=== PATIENT | female | born 1970 | race Caucasian/White ===

== ENCOUNTER → 2017-11-04 16:56 | Outpatient (CLI) | payer BC, SELFPAY | PROVIDERS: Visit Provider Obstetrics & Gynecology | DX: R30.0 Dysuria (principal) | CPT/HCPCS: 87086; 87088; 87186 ==

== ENCOUNTER → 2018-01-10 12:33 | Outpatient (CLI) | payer BC, MEDICAID, SELFPAY ==
--- NOTE | 2018-01-10 12:37 | BI_ITS ---
MAMMOGRAPHY - BILATERAL SCREENING REASON FOR EXAM: Female, 47 years old. Routine annual screening examination. PERTINENT HISTORY: Non-contributory. TECHNIQUE: Digital bilateral breast kristine (3D mammographic acquisition) in the CC and MLO projections. 2-D mediolateral oblique (MLO) and craniocaudad (CC) views of both breasts were obtained. CAD: Full Field Digital Mammography with Computer Added Detection was performed. COMPARISON: None. Baseline examination. FINDINGS: Breast Composition: The breasts are heterogeneously dense, which may obscure small masses. There are no dominant masses or suspicious calcifications. No other significant abnormalities are identified. BI/SCREENING MAMM (CAD), BILAT IMPRESSION: Negative screening mammogram. Yearly followup mammogram recommended. (A) ASSESSMENT CATEGORY: BIRADS Category 1: Negative. A letter regarding these results will be sent to the patient by the facility within 30 days. Approximately 10% of breast cancers are not detected by mammography. A normal mammogram should not delay biopsy of a clinically suspicious abnormality. [id number] Electronically Signed: Zia Dial MD at 13:52 EDT Tel [phone], Service support ,
== END ==
PROVIDERS: Visit Provider Obstetrics & Gynecology
DX: Z12.31 Encounter for screening mammogram for malignant neoplasm of breast (principal)
CPT/HCPCS: 77063; 77067

== ENCOUNTER 2018-05-12 09:00 | Outpatient (RCR) | payer BC, MEDICAID, SELFPAY ==
--- NOTE | 2018-04-04 10:24 | HP.PTEVAL_ITS ---
Patient's Visit Information YEVGENIY LADD is a 47 year old F referred to Physical Therapy by LEO TONEY with a diagnosis of cervical spondylosis w/o myelopathy. Date of Evaluation: 04/04/18 Physical Therapist: Christine Mitchell - Visit Plan Frequency: 2x /Week Duration: 4 Weeks Plan: 2X/ week for 4 weeks for c-spine AROM, MT to B c-spine paraspinals, manual distracton, if ok with manual distraction may proceed to mechanical traction, postural exercises with modalitites as needed - Subjective Subjective: Pt reports neck issues for about 10 year and it comes and goes. About 10 years ago she was with her daughter at on one of the kiddie rides and that seemed to be what started it. They did an x-ray. She did an MRI 7 years ago. Normally she gets injections in her neck but insurance wants PT first. Neck pain is in the middle of neck and into shoulders on the R side and has not gone into R arms as of yet. It does go into the fingers if she drives or depending on what she is doing. If she gets the injections and stays ahead of it then it does not go into fingers. She has noticed min weakness in her arms. She can not sleep because of the neck pain and hard to get comfortable. Injections generally lasted painwise about 2 months. SHe has had PT for her neck before with stretching the neck (traction) annd US and those have been the most beneficial. She has exercise bands that she is doing at home. 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 - Pain neck pain Pain Intensity (Out of 10): 7 - Objective Pt is R handed: [employer] STRENGTH: R 53# and L 65#. C-spine AROM: 75% Rot B, 75% flexion, Ext 25%. UE MMT: B flexion 4-/5, B hip abd 4-/5, ER B 4-/5, IR B 4/ 5. Palpation: tender occiput region, B c-spine paraspinals. Pt felt better with c-spine distraction (improved rotation AROM after). Posture: sits with rounded shoulders and fw shoulders and slight fw head - Goals Goal 1:: I HEP Goal Time Frame: 4-6 Weeks Goal 2:: Be able to sleep through the night without waking up in pain (at least 6 hours of sleep) Goal Time Frame: 4-6 Weeks Goal 3:: Increase c-spine AROM to 100% Rot B and flexion and 75% ext AROM Goal Time Frame: 4-6 Weeks - Rehabilitation Potential Rehabilitation Potential: Good - Anticipated Interventions Patient/Client Instruction: Educate patient on: Plan of Care For the Purpose of:: To decrease pain, To increase ROM, To improve nutrient delivery to tissue, To improve muscle performance and motor function, To improve ability to perform ADL's, To increase tolerance to activity/condition/ position, To improve ability of physical actions for home/community/work/leisure , To improve health of tissue, To decrease soft tissue restriction, To increase flexibility/ROM Therapeutic Exercise to Include: Strength training, Postural training, Flexibilty training, Passive ROM, Active ROM, Scapular Strength/Stabilization For the Purpose of:: To decrease pain, To increase ROM, To improve nutrient delivery to tissue, To improve muscle performance and motor function, To improve ability to perform ADL's, To increase tolerance to activity/condition/ position, To improve health of tissue, To decrease soft tissue restriction, To increase flexibility/ROM Manual Therapy Techniques to Include: Passive ROM, Functional dry needling, Soft tissue mobilization For the Purpose of:: To decrease pain, To increase ROM, To improve nutrient delivery to tissue, To improve muscle performance and motor function, To improve ability of physical actions for home/community/work/leisure, To improve health of tissue, To decrease soft tissue restriction, To increase flexibility/ ROM IF ES: Yes Cryotherapy (ice pack, ice massage): Yes Ultrasound (thermal/non thermal): Yes For the Purpose of:: To decrease pain, To increase ROM, To improve nutrient delivery to tissue, To improve muscle performance and motor function, To improve ability to perform ADL's, To improve health of tissue, To decrease soft tissue restriction, To increase flexibility/ROM Thank you for the opportunity to evaluate your patient. For Medicare and Medicare HMO plans, please review the plan of care and approve it. It will need to be FAXED BACK to us at [phone] for Medicare purposes. Please let me know if there are questions or concerns regarding this plan of care. Physician Signature: Date:
--- NOTE | 2018-05-12 09:39 | HP.PTDCSUM_ITS ---
HP - PT D/C Summary It has been my pleasure to treat YEVGENIY LADD under orders from LEO TONEY , for the diagnosis of cervical spondylosis w/o myelopathy for a total of 9 visit(s). Discharge Date: 05/12/18 Please see the following information for a summary of their discharge status. - Subjective Subjective: Pt reports that she is still having CARRINGTON and still sore. US and traction helps when here but wears off quickly. SHe is having 3-4 CARRINGTON/ week. Pt goes back to [facility] soon for injections. Slight CARRINGTON today. Pt only sleeps about 3 hours a night. Driving is a huge issue because neck pain ( about 2-3 hours into work she notices pain in the shoulders and then goes up into the neck). - Pain neck pain Pain Intensity (Out of 10): 7 - Overall Improvement % Improvement: 30 - Objective Objective/Function: c-spine AROM: Ext 75%, flexion 100%, SB 75%, Rot R 100% and L 80%. Posture: is good and upright. - Goals Goal 1:: I HEP Goal Progress: Goal Met Goal 2:: Be able to sleep through the night without waking up in pain (at least 6 hours of sleep) Goal Progress: Not Progressing Goal 3:: Increase c-spine AROM to 100% Rot B and flexion and 75% ext AROM Goal Progress: Progressing - Plan Plan: DC PT to Physician referral as traction, MT, US and postural exercises only give temporary relief. - D/C Information Discharge Comments: DC PT back to physician If there are questions or concerns regarding this patient's physical therapy, please feel free to call me at [phone]. Thank you for the referral of this patient. Sincerely, Christine Mitchell
== END 2018-05-12 19:00 | disposition home or self-care (01) ==
LOC: PT 09:00
DX: M47.812 Spondylosis without myelopathy or radiculopathy, cervical region (principal)
CPT/HCPCS: 97012; 97035; 97140; 97161; 97530

== ENCOUNTER → 2018-06-28 11:59 | Outpatient (CLI) | payer BC, MEDICAID, SELFPAY ==
[2018-06-28 14:24] LABS: Erythrocyte Sedimentation Rate 6 mm/hr (0-20)
[2018-06-28 14:29] LABS: Absolute Lymphocyte Count 2.56 X10^3/ul (0.83-4.51); Absolute Neutrophil Count 5.9 X10^3/uL (2.0-7.7); Basophil# 0.03 X10^3/uL; Basophil% 0.3 % (0-1); Hematocrit 44.4 % (37-47); Hemoglobin 15.4 g/dl (12.0-15.0); Lymphocyte # 2.56 X10^3/ul (4.0); Lymphocyte % 28.6 % (19-41); Mean Corp Hgb Conc 34.7 g/gl (32-36); Mean Corpuscular Hgb 33.3 pg (27.0-32.0); Mean Corpuscular Volume 96.1 fL (81-99); Mean Platelet Vol. 10.9 fl (6.2-12.0); Monocyte# 0.42 X10^3/uL; Monocyte% 4.7 % (0-10); Neutrophil # 5.93 X10^3/uL (2.7-7.7); Neutrophil % 66.3 % (47-70); Platelet Count 229 K/mm3 (150-450); RBC Distribution Width CV 14.7 % (11.6-14.6); RBC Distribution Width SD 50.3 fl (35.1-43.9); Red Blood Count 4.62 M/mm3 (4.2-5.4)
[2018-06-28 14:30] LABS: Differential Indicated SCAN CRITERIA MET; POSITIVE COUNT NO; POSITIVE DIFFERENTIAL NO; POSITIVE MORPHOLOGY YES
[2018-06-28 14:36] LABS: ALB/GLOB Ratio 1.1 RATIO (0.9-2.4); AST(SGOT) 19 U/L (15-37); Alanine Aminotransfer ALT/SGPT 29 U/L (13-56); Albumin, Serum 3.7 g/dL (3.2-5.0); Alkaline Phosphatase 89 U/L (45-117); Anion Gap 8 (5-15); BUN 8 mg/dL (7-18); BUN/Creat Ratio 7.8 RATIO (10-20); Calcium,Total 8.6 mg/dL (8.5-10.1); Chloride 109 mmol/L (98-107); Creatinine, Serum 1.02 mg/dL (0.55-1.02); EST Glomerular Filtration Rate 62 mL/min (>60); Est Glom Filt Rate - Afr Amer 75 mL/min (>60); Globulin 3.3 g/dL (2.2-4.2); Glucose 74 mg/dL (74-106); Potassium 4.2 mmol/L (3.5-5.1); Sodium Level 142 mmol/L (136-145)
[2018-06-28 14:55] LABS: Reactive Lymphocyte 1+
== END ==
DX: R11.0 Nausea (principal)
CPT/HCPCS: 36415; 80053; 85025; 85652

== ENCOUNTER 2018-09-09 20:24 | Emergency (ER) | payer BC, MEDICAID, SELFPAY ==
[2018-09-09] VITALS (9 sets, daily range): BP systolic 115–156; BP diastolic 47–85; PULSE 76–102; RESP 14–18; TEMP 36.2; O2SAT 95–100; BMI 21.4
[2018-09-09] MEDS: oxyCODONE 5 MG Tablet PO ×3 (20:43→23:36)
--- NOTE | 2018-09-09 20:56 | RAD_ITS ---
STUDY: X-RAY - LEFT WRIST REASON FOR EXAM: Female, 48 years old. Fall on wrist while roller skating, bruising, swelling, fracture TECHNIQUE: 3 view(s) of the wrist were obtained. COMPARISON: None. FINDINGS: Transverse dominant fracture of the distal radius extends to the distal radial articulation. There is approximately 8 mm of displacement with moderate degree of volar apical attenuation. Nondisplaced fracture of the ulnar styloid also identified. Normal distal radioulnar articulation. Normal carpal bones. Normal carpal articulations. Normal carpometacarpal articulation of the thumb. Normal second through fifth carpometacarpal articulations. Normal visualized metacarpal bones. There is soft tissue swelling. RAD/Wrist min 3 Views IMPRESSION: Distal radial fracture with angulation and displacement. Ulnar styloid fracture. Electronically Signed: Fortino Leon MD at 22:58 EST , Service support ,
[2018-09-09] MEDS: Propofol 200 MG/20 ML Vial IV BOLUS (22:40)
--- NOTE | 2018-09-09 22:42 | RAD_ITS ---
STUDY: X-RAY - LEFT WRIST REASON FOR EXAM: Female, 48 years old. Status post reduction of distal radius fracture. TECHNIQUE: 3 view(s) of the wrist were obtained. COMPARISON: Earlier today FINDINGS: Distal radius fracture has been reduced with gross radiographic alignment. Ulnar styloid fracture is similar. Bony detail obscured by overlying splint material. Normal radiocarpal articulation. Normal distal radioulnar articulation. Normal carpal bones. Normal carpal articulations. Normal carpometacarpal articulation of the thumb. Normal second through fifth carpometacarpal articulations. Normal visualized metacarpal bones. Soft tissue swelling persists. RAD/Wrist 2 Views IMPRESSION: Radiographic alignment of distal radial fracture following reduction. Nondisplaced ulnar styloid fracture. Electronically Signed: Fortino Leon MD at 23:01 EST , Service support ,
--- NOTE | 2018-09-09 22:54 | ED.DCSUM_ITS ---
- ER Visit Summary Date of Service: 09/09/18 Chief Complaint: Left wrist injury History of Present Illness: The patient is a 48 F presents to the emergency department injury to her left wrist. Patient was roller skating. She ended up losing her balance and fell. She caught herself on an outstretched left wrist. She is right-hand dominant. She did not strike her head. She denies other injury. 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 She is otherwise healthy. She takes no anticoagulants. Physical Examination: Exam relatively unremarkable. Patient does have obvious deformity of the left wrist. Her pulses are normal. Anterior interosseous, posterior interosseous, and ulnar nerve are preserved. Pulses are normal. There is no skin breakdown or tenting. Test Results: [] Emergency Department Course and Treatment: Patient was given oral analgesics. X-rays were obtained. It does show displaced distal radius fracture with dorsal angulation. I did review options with the patient. She did request sedation. The patient was consented for conscious sedation. She was given a total of 100 mg of propofol in small aliquots. When she was sedated, the wrist was reduced. She was placed in a plaster splint. Repeat x-rays do show marked improvement of alignment. The patient will be kept on analgesics. She requested a follow- up with Dr. Fitzgerald and will be given this outpatient follow-up. She will be discharged home. Treatment Plan: [] Disposition: Discharge Impression: 1. Left distal radius fracture with reduction 2. Conscious sedation 3. Splint by ED physician This note was generated with [employer] dictation software. It may contain incorrect words, spelling, and punctuation that were not noted in review of the chart prior to signing ED Disposition - Plan for ED Patient: Chief Complaint: Upper Extremity Injury Instructions: ED Fx Colles Wrist Redu Requ Prescriptions: Oxycodone HCl/Acetaminophen [Percocet 5/325] 1 tab PO Q6H PRN PRN 3 Days #12 tab PRN Reason: Pain Referrals: Cristina Gomez DO [STAFF PHYSICIAN] -
== END 2018-09-09 23:46 | disposition home or self-care (01) ==
PROVIDERS: Emergency Provider Emergency Medicine
DX: S52.502A Unspecified fracture of the lower end of left radius, initial encounter for closed fracture (principal); S52.612A Displaced fracture of left ulna styloid process, initial encounter for closed fracture; W18.30XA Fall on same level, unspecified, initial encounter; Y93.51 Activity, roller skating (inline) and skateboarding; Y92.9 Unspecified place or not applicable
CPT/HCPCS: 25605; 29125; 73100; 73110; 96374; 99285; J7030; A4216

== ENCOUNTER → 2018-09-14 08:39 | Outpatient (CLI) | payer BC, MEDICAID, SELFPAY ==
[2018-09-14 08:14] VITALS: BMI 21.4
--- NOTE | 2018-09-14 08:41 | RAD_ITS ---
STUDY: X-RAY - LEFT WRIST REASON FOR EXAM: Fracture. TECHNIQUE: 3 view(s) of the wrist were obtained. COMPARISON: Post reduction radiographs 09/09/2018. FINDINGS: There is no interval change of the distal radial and ulnar fractures with satisfactory alignment and position. Normal radiocarpal articulation. Normal distal radioulnar articulation. Normal carpal bones. Normal carpal articulations. Normal carpometacarpal articulation of the thumb. Normal second through fifth carpometacarpal articulations. Normal visualized metacarpal bones. There is an overlying cast. RAD/Wrist min 3 Views IMPRESSION: No interval change of distal radial and ulnar fractures. Electronically Signed: Gopi Cohn MD at 11:33 EST Tel , Service support ,
--- OUTSIDE RECORDS SUMMARY | 2018-10-31 01:50 | XMS RPT_ITS ---
:1970 Author Organization OHIP Support Name Relationship Address Phone HETAL, DAVION Unavailable [address] + [place] [address] UE Unavailable Unavailable Unavailable HETAL, DAVION Unavailable [address] + [place] [address] UE Unavailable Unavailable Unavailable HETAL, DAVION Unavailable [address] + [place] [address] UE Unavailable Unavailable Unavailable HETAL, DAVION Unavailable [address] + [place] [address] UE Unavailable Unavailable Unavailable HETAL, DAVION Unavailable [address] + [place] [address] UE Unavailable Unavailable Unavailable HETAL, DAVION Unavailable [address] + [place] [address] UE Unavailable Unavailable Unavailable HETAL, DAVION Unavailable [address] + [place] [address] UE Unavailable Unavailable Unavailable HETAL, DAVION Unavailable [address] + [place] [address] UE Unavailable Unavailable Unavailable HETAL, DAVION Unavailable [address] + [place] [address] UE Unavailable Unavailable Unavailable HETAL, DAVION Unavailable [address] + [place] [address] UE Unavailable Unavailable Unavailable HETAL, DAVION Unavailable [address] + [place] [address] UE Unavailable Unavailable Unavailable HETAL, DAVION Unavailable [address] + [place] [address] RICKI LADD Unavailable [address] + [place] [address] UE Unavailable Unavailable Unavailable DAVION FONG Unavailable [address] + [place] [address] RICKI LADD Unavailable [address] + [place] [address] UE Unavailable Unavailable Unavailable Care Team Providers Name Role Phone Cristina Gomez Attending Unavailable Primay Care Physicia, No Referring Unavailable Cocoorelscar, Cristina Attending Unavailable Chicorelscar, Cristina Referring Unavailable Primay Care Physicia, No Primary Care Unavailable Chicorelscar, Cristina Attending Unavailable Primay Care Physicia, No Referring Unavailable Chicorelli, Cristina Attending Unavailable Chicorelli, Cristina Referring Unavailable Primay Care Physicia, No Primary Care Unavailable Patricia, Cristina Attending Unavailable Chicorelscar, Cristina Referring Unavailable Primay Care Physicia, No Primary Care Unavailable Regis Naranjo Attending Unavailable Primay Care Physicia, No Referring Unavailable Simona Cantor Attending Unavailable Primay Care Physicia, No Primary Care Unavailable Praminder Barney Attending Unavailable Primay Care Physicia, No Primary Care Unavailable WALLACE HANCOCK Attending Unavailable WALLACE HANCOCK Referring Unavailable Primay Care Physicia, No Primary Care Unavailable WALLACE HANCOCK Consulting Unavailable WALLACE HANCOCK Attending Unavailable WALLACE HANCOCK Referring Unavailable Primay Care Physicia, No Primary Care Unavailable Primay Care Physicia, No Primary Care Unavailable Jalil Villafana Attending Unavailable Regis Naranjo Attending Unavailable Regis Naranjo Referring Unavailable Primay Care Physicia, No Primary Care Unavailable Patricia, Cristina Attending Unavailable PROBLEMS PROBLEMS DATE TYPE CONDITION / CODE ATTENDING STATUS SOURCE 10/06/2018 Unknown S52.502A - Regis Naranjo Active [place] [facility] fracture of the Hospital lower end of left Repository radius, initial encounter for closed fracture / S52.502A(ICD-10) 09/21/2018 Unknown S62.102A - Patricia, Active [place] [facility] carpal bone, left Repository wrist, initial encounter for closed fracture / S62.102A(ICD-10) 09/09/2018 Unknown S62.109A - Jalil Villafana Active [place] Fracture of Community unspecified Hospital carpal bone, Repository unspecified wrist, initial encounter for closed fracture / S62.109A(ICD-10) 05/16/2018 Unknown M47.812 - WALLACE HANCOCK Active [place] 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, cervical region / M47.812(ICD-10) 01/10/2018 Unknown Z12.31 - Parminder Barney Active [facility] mamm[facility] for Repository malignant neoplasm of breast / Z12.31(ICD-10) 11/10/2017 Unknown R30.0 - Dysuria / Uw-Sim Active [place] R30.0(ICD-10) [facility] Repository PROCEDURES PROCEDURES No Procedure Records FoundRESULTS RESULTS ORTHOPEDIC VISIT Observed: 10/06/2018 Status: F Source: [place] REPORT 1:29 PM [facility] REPOSITORY [facility] Orthopaedics AND Sports Medicine [address] [place] [address] OFFICE VISIT Date of Service: 10/06/18 MR#: [id number] Acct: [id number] Name: RACHEL LADD Rep #: [id number] : 1970 Provider: PEG Naranjo Age/Sex: 48/F [place] [facility] [place]: Signed Intake Vital Signs10/06/18 Body Mass Index (BMI) 21.2 Intake Visit Reasons: LEFT WRIST Is patient in pain?: Yes Pain scale (1-10): 2 Allergies latex Allergy (Verified 10/06/18 08:46) Hives codeine Adverse Reaction (Verified 10/06/18 08:46) Vomiting hydrocodone [From Vicodin] Adverse Reaction (Verified 10/06/18 08:46) Vomiting Medications Dimenhydrinate [Motion Sickness] 50 mg PO QHS 12/27/16 [History Confirmed 09/22/18] Sumatriptan Succinate [Imitrex] 100 mg PO PRN PRN 12/27/16 [History Confirmed 09/22/18] Estradiol 1 mg PO DAILY 08/18/17 [History Confirmed 09/22/18] Naproxen [Naprosyn] 500 mg PO BID PRN 12/21/18 [History Confirmed 09/22/18] Omeprazole Magnesium [Prilosec Otc] 20 mg PO PRN PRN 09/22/18 [History Confirmed 09/22/18] Oxycodone HCl/Acetaminophen [Percocet 2.5-325 mg Tablet] 1 tab PO TID PRN PRN 09/22/18 [History Confirmed 09/22/18] PFSH Social History Smoking Status: Current every day smoker HPI LEFT WRIST: Details: RACHEL LADD is a 48 year old F here today for s/p left wrist ORIF dos 09/22/18. She states that she has soreness into wrist. Patient has been wearing her splint at all times. She is able to move her fingers with no pain. Denies numbness, tingling or other associated symptoms. ROS Const Reports system reviewed and no additional complaints, except as docu Eyes Reports system reviewed and no additional complaints, except as docu ENT Reports system reviewed and no additional complaints, except as docu Card Reports system reviewed and no additional complaints, except as docu Resp Reports system reviewed and no additional complaints, except as docu GI Reports system reviewed and no additional complaints, except as docu Reports system reviewed and no additional complaints, except as docu Musc Reports joint pain Skin/Breast Reports system reviewed and no additional complaints, except as docu Neuro Yes system reviewed and no additional complaints, except as docu Psych Reports system reviewed and no additional complaints, except as docu Endo Reports system reviewed and no additional complaints, except as docu Ortho Exam Right Wrist/Hand Skin/Wound: Yes Swelling (Minor volar swelling), No Ecchymosis Left Wrist/Hand Skin/Wound: Yes Swelling (Minor volar swelling), No Ecchymosis Contralateral Normal: Yes Left Wrist: Yes TTP Fracture site (Some minor tenderness); no ROM-Flexion 0-80, no ROM-Extension 0-60, no ROM-Pronation 0-80, no ROM-Supination 0-90 or no Durken's Test Sensation: Radial: I, Ulnar: I, Median: I WRIST: Today in the office patients splint was removed. Her incision site is healing well without any surrounding erythema, inflammation, or discharge. She has a minor swelling of the volar wrist. She has some minor tenderness around the incision/fracture site as well. Patient has normal movement and sensation of the hand and fingers. No evidence of carpal tunnel. Assessment AND Plan Problems 1. Orthopedic aftercare Z47.89 2. Encounter for aftercare for healing traumatic fracture of left humerus S42.302D Plan Obtained Xrays of patient's left wrist. Personally reviewed Xrays. There is an evident distal radius fracture with new overlying plate and screws. She has near anatomic alignment as this time. There is no dislocation, or lucency noted. See chart for further details. This time patient is healing well 2 weeks postop ORIF of the left wrist due to distal radius fracture. She is some very minor swelling of the volar wrist without any erythema, inflammation, discharge or signs of infection. She is some minor tenderness on palpation as well. She has normal sensation movements of the fingers and hand. At this time we did go over her x-rays which show good alignment of the bones with the orthopedic hardware in place. No evidence of callus formation at this time. We did discuss that her smoking is going to inhibit/prolong her healing and some of that we need to make sure we monitor. At this point we are going to give her a prescription for occupational therapy so she can begin range of motion of the wrist. She can continue to ice and take anti-inflammatories as needed for pain and inflammation. She is to monitor and notify of any erythema, increased swelling, increasing pain, or discharge from the incision sites. I allow the Steri- Strips to fall on her own. She is able to get this wet without any soaking at this time. We will recheck in 1 month. Orders Orders: Plan Detail Follow Up 4 Weeks Coding Level of Care Code Global Post Op Diagnoses Orthopedic aftercare Z47.89 Encounter for aftercare for healing traumatic fracture of left humerus S42.302D Laterality: left 10/06/18 1329 <Electronically signed by Regis RUVALCABA> Date Regis RUVALCABA Cosigner Signature: Date (if applicable) CC: WRIST MIN 3 VIEWS Observed: 10/06/2018 Status: F Source: [place] 8:51 AM [facility] REPOSITORY [facility] Imaging Services [address] [place] [address] Wrist min 3 Views MR#: [id number] Acct: [id number] Name: RACHEL LADD Rep #: [id number] : 1970 F 48 From: Fortino Leon MD PCP: Care Physician, No Primary Status: REG CLI Study: Wrist min 3 Views Date of Exam: 10/06/18 Exam# [id number] Ordering Dr: Regis Naranjo STUDY: X-RAY - LEFT WRIST REASON FOR EXAM: Female, 48 years old. Fracture follow- up following surgical fusion TECHNIQUE: 3 view(s) of the wrist were obtained. COMPARISON: 09/22/2018, 09/21/2019 FINDINGS: Fixation plate and screws spanning distal radial fracture similar in alignment as compared to 09/22/2018. Persistent fracture line is identified. No malalignment. Ulnar styloid fractures again demonstrated. Bony detail obscured by material. Normal radiocarpal articulation. Normal distal radioulnar articulation. Normal carpal bones. Normal carpal articulations. Normal carpometacarpal articulation of the thumb. Normal second through fifth carpometacarpal articulations. Normal visualized metacarpal bones. The soft tissue structures are unremarkable. RAD/Wrist min 3 Views IMPRESSION: 1. Stable alignment of distal radial fracture with orthopedic fusion hardware. 2. Nondisplaced ulnar styloid fracture. Electronically Signed: Fortino Leon MD at 7:16 EST , Service support , CC: No Primary Care Physician; PEG Naranjo Lode Miner: Signed OPERATIVE REPORT Observed: 09/29/2018 Status: F Source: [place] 12:20 PM [facility] REPOSITORY [facility] Medical Records Department [address] [place] [address] Operative Report 09/22/18 1143 MR#: [id number] Acct: [id number] Name: RACHEL LADD Rep #: [id number] : 1970 48 From: Cristina Gomez DO PCP: Care Physician, No Primary Status: [facility] [place] [facility] [place] of Operation Date of Procedure: 09/22/18 Pre-Operative Diagnosis: left displaced extraarticular distal radius fracture Post-Operative Diagnosis: same Surgery/Procedure Performed:: orif left distal radius with synthes DR plate bioprocess development engineer: Regis Naranjo Type of Anesthesia:: General Anesthesiologist: Apolinar Barney Estimated Blood Loss (mL): minimal Fluids Replaced: 1000ml lr Description of Procedure: Preoperative note Patient is a 48-year-old female who fell onto outstretched left hand. Stated deformity was reduced in the ER. She presented in the office we casted her she had to miss dorsal comminution and fell back into extension incision was made with the patient between a closed reduction and pinning versus a open reduction internal fixation. She would like to proceed with open reduction internal fixation to the fact that she would have not have to be in a cast for his lawn and or nor pull out pins in the office. Risks benefits and alternatives surgery discussed with patient. Risks including but not limited to blood loss, blood clot, infection, neurovascular injury, failure procedure, loss of life and loss of limb. Patient is aware and would like proceed with ORIF left wrist. Operative note Patient seen and examined preoperative holding area. Left hand was marked. Patient brought to the operating placed supine on the operating table. Signing, anesthesia, antibiotics were administered. Left arm was prepped and draped in usual sterile fashion with a tourniquet around her upper arm. Marked out our incision for our plate placement timeout was performed. Left leg the left arm was elevated exsanguinated and tourniquet was raised to pressure 250 torr. We then used a 15 blade to cut through the skin over top of the FCR and then dissected down tenotomies of the FCR FCR was released ulnarly the FCR fascia was also released we dissected down to the pronator quadratus pronator quadratus was elevated starting medially at the radial styloid and moving proximally using a brito elevator. We then were able to visualize the fracture site. We debrided the first fracture site with a dental pick. We then irrigated the incision with copious muscle sterile saline. Picked out our 2.4 variable angle will observe L at 2.4 to calm volar distal radius plate and placed it on to ensure that we had a good size which we did have. We then placed 2 cortical screws one in the radial styloid and the second 1 just ulnar to this after placing a K wire through the plate and ascertain the level that that we need to be from a proximal distal medial lateral. After he placed our 2 cortical screws we also made sure that we had almost the kickstand effect of the proximal shaft of the plate in order to further reduce the fracture site because she has quite extensive dorsal comminution again. We then placed variable angle of the 2.4 locking screws distally placed our shaft screws proximally were able to have neutralization of our volar tilt. We then filled and the remaining distal holes with locking screws through the more proximal row of the distal rows. We then irrigated the incision with copious muscle sterile saline. The pronator quadratus was tacked down to the periosteum. We closed the skin with 3-0 Vicryl and the skin with 4-0 running Monocryl. Tourniquet was inflated for total working time of 80 minutes. Patient tolerated procedure well no comp complications transferred to recovery room in stable condition. Postoperative note Patient has Percocet at home this Nonweightbearing left arm Follow-up in 2 weeks for initiation of occupational therapy removal of splint Call with increased pain numbness tingling or further issues arise This note was generated with [employer] dictation software. It may contain incorrect words, spelling, and punctuation that were not noted in checking the note before signing. 09/29/18 1220 <Electronically signed by Cristina Gomez DO> Date Cristina Gomez DO CC: No Primary Care Physician; Cristina Gomez DO Signed DISCHARGE INSTRUCTION Observed: 09/22/2018 Status: F Source: [place] 11:43 AM [facility] REPOSITORY [facility] Medical Records Department [address] [address] Instructions for Home/Discharge Instructions 09/22/18 1143 MR#: [id number] Acct: [id number] Name: RACHEL LADD Rep #: [id number] : 1970 48 From: Cristina Gomez DO PCP: Care Physician, No Primary Status: REG [facility] Discharge Diet: No Restrictions - leave dressing intact, if incision gets wet-change dressing, call with concerns, follow up in 2 weeks in clinic Discharge Activity: May Not Drive May shower in (days): 1 Ice area for (Minutes): 20 - Every hour while awake. Weight Bearing Status: Weight bearing as tolerated Keep extremity elevated above heart level: Operative Extremity Call your doctor if your incision/area has: Continuous Slow Oozing, Sudden Increased Bleeding, Increased Pain/ Swelling, Increased Redness, Foul Smelling Discharge Call your doctor if you observe: Fever of 101 or Higher, Coldness, Increased Pain, Numbness or Tingling, Change in Color, Calf discomfort Allergies/Adverse Reactions: Allergies latex Allergy (Verified 09/22/18 10:45) Hives codeine Adverse Reaction (Verified 09/22/18 10:45) Vomiting hydrocodone [From Vicodin] Adverse Reaction (Verified 09/22/18 10:45) Vomiting Medications to take at Discharge Dimenhydrinate [Motion Sickness] 50 mg PO QHS 12/27/16 Sumatriptan Succinate [Imitrex] 100 mg PO PRN PRN 12/27/16 Estradiol 1 mg PO DAILY 08/18/17 Naproxen [Naprosyn] 500 mg PO BID PRN 09/22/18 Omeprazole Magnesium [Prilosec Otc] 20 mg PO PRN PRN 09/22/18 Oxycodone HCl/Acetaminophen [Percocet 2.5-325 mg Tablet] 1 tablet PO TID PRN PRN 09/22/18 Primary Care Physician: Care Physician,No Primary [Primary Care Provider] - Test Results: Test results from this visit will be discussed in further detail at your follow-up appointment, if applicable. Please Follow Up With: Cristina Gomez DO - [phone] 09/22/18 1144 <Electronically signed by Cristina Gomez DO> Date Cristina Gomez DO CC: No Primary Care Physician Signed WRIST 2 VIEWS Observed: 09/22/2018 Status: F Source: [place] 2:03 AM [facility] REPOSITORY [facility] Imaging Services [address] [place] [address] Wrist 2 Views MR#: [id number] Acct: [id number] Name: RACHEL LADD Rep #: [id number] : 1970 F 48 From: Gopi Cohn MD PCP: Care Physician, No Primary Status: [facility] Study: Wrist 2 Views Date of Exam: 09/22/18 Exam# [id number] Ordering Dr: Cristina Gomez DO STUDY: X-RAY - LEFT WRIST REASON FOR EXAM: ORIF left wrist. TECHNIQUE: 4 view(s) of the wrist were obtained. COMPARISON: Radiographs 09/21/2018. FINDINGS: There is an orthopedic plate and screws transfixing a distal radial fracture in anatomical alignment and position. There is a nondisplaced fracture of the ulnar styloid process. Electronically Signed: Gopi Cohn MD at 15:45 EST Tel , Service support , RAD/Wrist 2 Views CC: No Primary Care Physician; Cristina Gomez DO Lode Miner: Signed ORTHOPEDIC VISIT Observed: 09/21/2018 Status: F Source: [place] REPORT 3:58 PM [facility] Orthopaedics AND Sports Medicine [address] [place] [address] [address] [place] [address] OFFICE VISIT Date of Service: 09/21/18 MR#: [id number] Acct: [id number] Name: RACHEL LADD Rep #: [id number] : 1970 Provider: Cristina Gomez DO Age/Sex: 48/F [place] [facility] [place] Status: Signed Intake Intake Visit Reasons: LEFT WRIST Is patient in pain?: No Allergies latex Allergy (Verified 09/21/18 15:32) Hives acetaminophen [From Vicodin] Adverse Reaction (Verified 09/21/18 15:32) Vomiting codeine Adverse Reaction (Verified 09/21/18 15:32) Vomiting hydrocodone [From Vicodin] Adverse Reaction (Verified 09/21/18 15:32) Vomiting Medications Dimenhydrinate [Motion Sickness] 50 mg PO QHS 12/27/16 [History Confirmed 09/09/18] Sumatriptan Succinate [Imitrex] 100 mg PO PRN PRN 12/27/16 [History Confirmed 09/09/18] Estradiol 1 mg PO DAILY 08/18/17 [History Confirmed 09/09/18] Naproxen [Naprosyn] 500 mg PO BID #20 tab 08/18/17 [Rx Confirmed 09/09/18] PFSH Social History Smoking Status: Current every day smoker HPI LEFT WRIST: Details: RACHEL LADD is a 48 year old F here today for a followup on her left wrist fracture. She states that she has no pain currently. Her shorrt arm cast is clean and dry but lose from swelling reduction. Denies numbness, tingling or other associated symptoms. ROS Const Reports system reviewed and no additional complaints, except as docu Eyes Reports system reviewed and no additional complaints, except as docu ENT Reports system reviewed and no additional complaints, except as docu Card Reports system reviewed and no additional complaints, except as docu Resp Reports system reviewed and no additional complaints, except as docu GI Reports system reviewed and no additional complaints, except as docu Reports system reviewed and no additional complaints, except as docu Skin/Breast Reports system reviewed and no additional complaints, except as docu Neuro Yes system reviewed and no additional complaints, except as docu Psych Reports system reviewed and no additional complaints, except as docu Endo Reports system reviewed and no additional complaints, except as docu Assessment AND Plan 1. Other closed fracture of distal end of left radius with routine healing, subsequent encounter S52.570U Plan X-rays were reviewed. There is change in fracture with displacement. Explained that she will need the fracture surgically fixed. Reviewed the pre-operative plans with the patient. Risks and benefits of the procedure were fully explained, including but not limited to infection, neurovascular injury, continued pain, arthritis, stiffness, need for further surgery, re-injury, DVT, PE, general risks of anesthesia, and loss of limb or life. The patient understands all the risks and does wish to proceed with written consent. Follow up in two wks for post op or sooner if pain, swelling, numbness or associated symptoms, or concerns develop. All questions answered. Patient in agreement of plan. Plan Detail Other Orders Orders: Coding Level of Care Code Off vis,est,level 3 Diagnoses Other closed fracture of distal end of left radius with routine healing, subsequent encounter S52.592D Encounter type: subsequent encounter Fracture healing: with routine healing Fracture morphology: other fracture Fracture type: closed 09/21/18 1558 <Electronically signed by Cristina Gomez DO> Date Cristina Gomez DO Cosigner Signature: Date (if applicable) CC: WRIST MIN 3 VIEWS Observed: 09/21/2018 Status: F Source: [place] 3:24 PM [facility] REPOSITORY [facility] Imaging Services [address] [place] [address] Wrist min 3 Views MR#: [id number] Acct: [id number] Name: RACHEL LADD Rep #: [id number] : 1970 F 48 From: Anselmo De Souza MD PCP: Care Physician, No Primary Status: REG CLI Study: Wrist min 3 Views Date of Exam: 09/21/18 Exam# [id number] Ordering Dr: Cristina Gomez DO STUDY: X-RAY - LEFT WRIST REASON FOR EXAM: Female, 48 years old. Follow-up of fracture. TECHNIQUE: 3 view(s) of the wrist through casting material were obtained. COMPARISON: September 14, 2018 FINDINGS: There is generalized osteopenia. Fractures of the distal radius and ulna are stable with follow-up or angulation at the fracture site and impaction at the fracture site. 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 Normal second through fifth carpometacarpal articulations. Normal visualized metacarpal bones. The soft tissue structures are unremarkable. RAD/Wrist min 3 Views IMPRESSION: Stable appearance of the wrist with no change and no complications. Electronically Signed: Anselmo De Souza MD at 14:19 EST , Service support , CC: No Primary Care Physician; Cristina Gomez DO Lode Miner: Signed ORTHOPEDIC VISIT Observed: 09/19/2018 Status: F Source: [place] REPORT 2:29 PM [facility] REPOSITORY [facility] Orthopaedics AND Sports Medicine [address] [place] [address] OFFICE VISIT Date of Service: 09/14/18 MR#: [id number] Acct: [id number] Name: RACHEL LADD Rep #: [id number] : 1970 Provider: Cristina Gomez DO Age/Sex: 48/F [place] [facility] [place] [place]: Signed Intake Vital Signs09/14/18 Body Mass Index (BMI) 21.4 Intake Visit Reasons: LEFT WRIST Is patient in pain?: Yes Pain scale (1-10): 7 Allergies latex Allergy (Verified 09/14/18 08:12) Hives acetaminophen [From Vicodin] Adverse Reaction (Verified 09/14/18 08:12) Vomiting codeine Adverse Reaction (Verified 09/14/18 08:12) Vomiting hydrocodone [From Vicodin] Adverse Reaction (Verified 09/14/18 08:12) Vomiting Medications Dimenhydrinate [Motion Sickness] 50 mg PO QHS 12/27/16 [History Confirmed 09/09/18] Sumatriptan Succinate [Imitrex] 100 mg PO PRN PRN 12/27/16 [History Confirmed 09/09/18] Estradiol 1 mg PO DAILY 08/18/17 [History Confirmed 09/09/18] Naproxen [Naprosyn] 500 mg PO BID #20 tab 08/18/17 [Rx Confirmed 09/09/18] PFSH Social History Smoking Status: Current every day smoker HPI LEFT WRIST: Details: RACHEL LADD is a 48 year old F here today for a left wrist fracture. She states that she fell while rollerskating on Tuesday night. She had a deformity and went to the ED where she had her wrist reduced. Patient notes that she was put into a splint which she has been wearing at all times. She has swelling and throbbing into her fingers. She has tingling into her 5th finger. Patient is taking percocet for pain. ROS Const Reports system reviewed and no additional complaints, except as docu Eyes Reports system reviewed and no additional complaints, except as docu ENT Reports system reviewed and no additional complaints, except as docu Card Reports system reviewed and no additional complaints, except as docu Resp Reports system reviewed and no additional complaints, except as docu GI Reports system reviewed and no additional complaints, except as docu Reports system reviewed and no additional complaints, except as docu Musc Reports joint pain, Reports joint swelling, Reports stiffness, Reports numbness Skin/Breast Reports system reviewed and no additional complaints, except as docu Neuro Yes system reviewed and no additional complaints, except as docu, Yes numbness Psych Reports system reviewed and no additional complaints, except as docu Endo Reports system reviewed and no additional complaints, except as docu Ortho Exam Left Wrist/Hand Motor: EPL: 5, FDP-2: 5, 1st Dorsal Interosseous: 5, APB: 5 Sensation: Radial: I, Ulnar: I, Median: I WRIST: ttp at fracture site Assessment AND Plan Plan Cast rules were reviewed with the patient. Patient should not stick any objects down the cast, should not get cast wet, and should not use cast as a weapon. extraarticular distal radius fracture cast repeat xrays 1 week in cast discussed treatment options for patient and all questions answered. Patient in agreement of plan. Follow up in1 week with repeat xrays or sooner if pain, swelling, numbness or associated symptoms, or concerns develop. Orders Orders: Coding Level of Care Code Off vis,new,level 3 09/19/18 1429 <Electronically signed by Cristina Gomez DO> Date Cristina Gomez DO Cosigner Signature: Date (if applicable) CC: WRIST MIN 3 VIEWS Observed: 09/14/2018 Status: F Source: [place] 8:41 AM [facility] REPOSITORY [facility] Imaging Services [address] [place] [address] Wrist min 3 Views MR#: [id number] Acct: [id number] Name: RACHEL LADD Rep #: [id number] : 1970 F 48 From: Gopi Cohn MD PCP: Care Physician, No Primary Status: REG CLI Study: Wrist min 3 Views Date of Exam: 09/14/18 Exam# [id number] Ordering Dr: Cristina Gomez DO STUDY: X-RAY - LEFT WRIST REASON FOR EXAM: Fracture. TECHNIQUE: 3 view(s) of the wrist were obtained. COMPARISON: Post reduction radiographs 09/09/2018. FINDINGS: There is no interval change of the distal radial and ulnar fractures with satisfactory alignment and position. Normal radiocarpal articulation. Normal distal radioulnar articulation. Normal carpal bones. Normal carpal articulations. Normal carpometacarpal articulation of the thumb. Normal second through fifth carpometacarpal articulations. Normal visualized metacarpal bones. There is an overlying cast. RAD/Wrist min 3 Views IMPRESSION: No interval change of distal radial and ulnar fractures. Electronically Signed: Gopi oChn MD at 11:33 EST Tel , Service support , CC: No Primary Care Physician; Cristina Gomez DO Lode Miner: Signed EMERGENCY DEPARTMENT Observed: 09/09/2018 Status: F Source: [place] SUMMARY 11:24 PM [facility] REPOSITORY [facility] Medical Records Department [address] [place] [address] Emergency Department Summary 09/09/18 2252 MR#: [id number] Acct: [id number] Name: RACHEL LADD Rep #: [id number] : 1970 48 From: Jalil Villafana MD PCP: Care Physician, Thu Primary Status: REG ER - ER Visit Summary Date of Service: 09/09/18 Chief Complaint: Left wrist injury History of Present Illness: The patient is a 48 F presents to the emergency department injury to her left wrist. Patient was roller skating. She ended up losing her balance and fell. She caught herself on an outstretched left wrist. She is right- hand dominant. She did not strike her head. She denies other injury. 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 She is otherwise healthy. She takes no anticoagulants. Physical Examination: Exam relatively unremarkable. Patient does have obvious deformity of the left wrist. Her pulses are normal. Anterior interosseous, posterior interosseous, and ulnar nerve are preserved. Pulses are normal. There is no skin breakdown or tenting. Test Results: [] Emergency Department Course and Treatment: Patient was given oral analgesics. X-rays were obtained. It does show displaced distal radius fracture with dorsal angulation. I did review options with the patient. She did request sedation. The patient was consented for conscious sedation. She was given a total of 100 mg of propofol in small aliquots. When she was sedated, the wrist was reduced. She was placed in a plaster splint. Repeat x-rays do show marked improvement of alignment. The patient will be kept on analgesics. She requested a follow-up with Dr. Fitzgerald and will be given this outpatient follow-up. She will be discharged home. Treatment Plan: [] Disposition: Discharge Impression: 1. Left distal radius fracture with reduction 2. Conscious sedation 3. Splint by ED physician This note was generated with [employer] dictation software. It may contain incorrect words, spelling, and punctuation that were not noted in review of the chart prior to signing ED Disposition - Plan for ED Patient: Chief Complaint: Upper Extremity Injury Instructions: ED Fx Colles Wrist Redu Requ Prescriptions: Oxycodone HCl/Acetaminophen [Percocet 5/325] 1 tab PO Q6H PRN PRN 3 Days #12 tab PRN Reason: Pain Referrals: Cristina Gomez DO [STAFF PHYSICIAN] - What to do if you have Problems For any increased pain, shortness of breath, bleeding, nausea or vomiting, chest pain, or any unexpected problems, contact your Primary Care Provider. Call [facility] ([phone]) or report to the closest Emergency Room. Call 911 if necessary. 09/09/18 2324 <Electronically signed by Jalil Villafana MD> Date Jalil Villafana MD Cosigner Signature (If Indicated): Date CC: No Primary Care Physician WRIST 2 VIEWS Observed: 09/09/2018 Status: F Source: [place] 10:40 PM [facility] REPOSITORY [facility] Imaging Services [address] [place] [address] Wrist 2 Views MR#: [id number] Acct: [id number] Name: RACHEL LADD Rep #: [id number] : 1970 F 48 From: Fortino Leon MD PCP: Care Physician, No Primary Status: DEP ER Study: Wrist 2 Views Date of Exam: 09/09/18 Exam# [id number] Ordering Dr: Jalil Villafana MD STUDY: X-RAY - LEFT WRIST REASON FOR EXAM: Female, 48 years old. Status post reduction of distal radius fracture. TECHNIQUE: 3 view(s) of the wrist were obtained. COMPARISON: Earlier today FINDINGS: Distal radius fracture has been reduced with gross radiographic alignment. Ulnar styloid fracture is similar. Bony detail obscured by overlying splint material. Normal radiocarpal articulation. Normal distal radioulnar articulation. Normal carpal bones. Normal carpal articulations. Normal carpometacarpal articulation of the thumb. Normal second through fifth carpometacarpal articulations. Normal visualized metacarpal bones. Soft tissue swelling persists. RAD/Wrist 2 Views IMPRESSION: Radiographic alignment of distal radial fracture following reduction. Nondisplaced ulnar styloid fracture. Electronically Signed: Fortino Leon MD at 23:01 EST , Service support , CC: No Primary Care Physician; Jalil Villafana MD Lode Miner: Signed WRIST MIN 3 VIEWS Observed: 09/09/2018 Status: F Source: [place] 8:32 PM [facility] REPOSITORY [facility] Imaging Services [address] [place] [address] Wrist min 3 Views MR#: [id number] Acct: [id number] Name: RACHEL LADD Rep #: [id number] : 1970 F 48 From: Frotino Leon MD PCP: Care Physician, No Primary Status: [facility] ER Study: Wrist min 3 Views Date of Exam: 09/09/18 Exam# [id number] Ordering Dr: Jalil Villafana MD STUDY: X-RAY - LEFT WRIST REASON FOR EXAM: Female, 48 years old. Fall on wrist while roller skating, bruising, swelling, fracture TECHNIQUE: 3 view(s) of the wrist were obtained. COMPARISON: None. FINDINGS: Transverse dominant fracture of the distal radius extends to the distal radial articulation. There is approximately 8 mm of displacement with moderate degree of volar apical attenuation. Nondisplaced fracture of the ulnar styloid also identified. Normal distal radioulnar articulation. Normal carpal bones. Normal carpal articulations. Normal carpometacarpal articulation of the thumb. Normal second through fifth carpometacarpal articulations. Normal visualized metacarpal bones. There is soft tissue swelling. RAD/Wrist min 3 Views IMPRESSION: Distal radial fracture with angulation and displacement. Ulnar styloid fracture. Electronically Signed: Fortino Leon MD at 22:58 EST , Service support , CC: No Primary Care Physician; Jalil Villafana MD Lode Miner: Signed ERYTHROCYTE SED RATE Collected: 06/28/2018 Status: F Source: [place] 12:07 PM [facility] REPOSITORY TYPE CODE TESTS RESULT OUT OF RANGE REFERENCE UNITS LAB L102.0000 0-20 mm/hr Normal SED RATE 6 Performed By: #### L101.9900, L100.0100 #### [facility] [place], [address] CBC W/DIFF, AUTOMATED Collected: 06/28/2018 Status: F Source: [place] 12:07 PM [facility] REPOSITORY TYPE CODE TESTS RESULT OUT OF RANGE REFERENCE UNITS LAB L100.1000 4.4-11.0 K/mm3 Normal WBC 9.0 LAB L100.1200 4.2-5.4 M/mm3 Normal RBC 4.62 LAB L100.1300 12.0-15.0 g/dl High HGB 15.4 LAB L100.1400 37-47 % Normal HCT 44.4 LAB L100.1500 81-99 fL Normal MCV 96.1 LAB L100.1600 27.0-32.0 pg High MCH 33.3 LAB L100.1700 32-36 g/gl Normal MCHC 34.7 LAB L100.1810 11.6-14.6 % High RDW CV 14.7 LAB L100.1820 35.1-43.9 fl High RDW SD 50.3 LAB L100.1900 150-450 K/mm3 Normal PLT 229 LAB L100.2000 6.2-12.0 fl Normal MPV 10.9 LAB L100.2100 47-70 % Normal NEUT% 66.3 LAB L100.2200 19-41 % Normal LY% 28.6 LAB L100.2300 0-10 % Normal MONO% 4.7 LAB L100.2400 0-5 % Normal EO% 0.0 LAB L100.2500 0-1 % Normal BASO% 0.3 LAB L100.2550 0.0-0.9 % Normal IM GRAN % 0.100 Result Comment: IG% - Immature Granulocytes (promyelocytes, myelocytes and metamyelocytes) > 1% indicates that a LEFT SHIFT is Present. LAB L100.2620 2.0-7.7 X10 3/uL Normal Absolute Neut 5.9 LAB L100.2720 0.83-4.51 X10 3/ul Normal Absolute Lymph 2.56 LAB L100.4700 Normal REACTIVE LYMPH 1+ Performed By: #### L101.9900, L100.0100 #### [facility] [address] [place], [address] COMPREHENSIVE METABOLIC Collected: 06/28/2018 Status: F Source: [facility] 12:07 PM [facility] REPOSITORY TYPE CODE TESTS RESULT OUT OF RANGE REFERENCE UNITS LAB L501.0100 74-106 mg/dL Normal GLU 74 Result Comment: Please note revised GLUCOSE reference range effective 2017. LAB L501.1000 7-18 mg/dL Normal BUN 8 LAB L501.1100 0.55-1.02 mg/dL Normal CREAT,SERUM 1.02 Result Comment: The validity of the calculated GFR AND GFRAA in patients over 70 years has not been determined. Clinical correlation is essential. LAB L501.1110 >60 mL/min Normal EST GFR 62 Result Comment: Non- GFR Calc LAB L501.1115 >60 mL/min Normal EST GFR - AA 75 Result Comment: GFR Calc LAB L501.1300 10-20 RATIO Low BUN/CRE 7.8 LAB L501.1500 6.4-8.2 g/dL Normal T PROT 7.0 LAB L501.1800 3.2-5.0 g/dL Normal ALB 3.7 LAB L501.1950 2.2-4.2 g/dL Normal GLOB 3.3 LAB L501.2000 0.9-2.4 RATIO Normal A/G 1.1 LAB L501.2200 8.5-10.1 mg/dL Normal CA 8.6 LAB L501.4100 15-37 U/L Normal AST 19 Result Comment: Slight Hemolysis, Result may be falsely increased. LAB L501.4305 45-117 U/L Normal ALK P 89 LAB L501.4405 13-56 U/L Normal ALT 29 LAB L501.4600 0.20-1.00 mg/dL Normal T BILI 0.30 LAB L501.5300 136-145 mmol/L Normal NA 142 LAB L501.5600 3.5-5.1 mmol/L Normal K 4.2 Result Comment: Slight Hemolysis, Result may be falsely increased. LAB L501.5900 98-107 mmol/L High CL 109 LAB L501.6100 21.0-32.0 mmol/L Normal CO2 25.0 LAB L501.6200 5-15 Normal 8 GAP Performed By: #### L500.4050 #### [facility] [address] [place], [address] PT D/C SUMMARY (1) Observed: 05/12/2018 Status: F Source: [place] 9:48 AM [facility] REPOSITORY [facility] Physical Therapy [facility] [address] [place] [address]. [address] [place], [place] [address] Fax REHABILITATION SERVICES DISCHARGE SUMMARY MR#: [id number] Acct: [id number] Name: RACHEL LADD Rep #: [id number] : 1970 48 From: Christine BATISTA Referring : Status: REG RCR Insurance: [facility] [employer] HP - PT D/C Summary It has been my pleasure to treat RACHEL LADD under orders from LEO TONEY, for the diagnosis of cervical spondylosis w/o myelopathy for a total of 9 visit(s). Discharge Date: 05/12/18 Please see the following information for a summary of their discharge status. - Subjective Subjective: Pt reports that she is still having CARRINGTON and still sore. US and traction helps when here but wears off quickly. SHe is having 3-4 CARRINGTON/ week. Pt goes back to [place] soon for injections. Slight CARRINGTON today. Pt only sleeps about 3 hours a night. Driving is a huge issue because neck pain ( about 2-3 hours into work she notices pain in the shoulders and then goes up into the neck). - Pain neck pain Pain Intensity (Out of 10): 7 - Overall Improvement % Improvement: 30 - Objective Objective/Function: c-spine AROM: Ext 75%, flexion 100%, SB 75%, Rot R 100% and L 80%. Posture: is good and upright. - Goals Goal 1:: I HEP Goal Progress: Goal Met Goal 2:: Be able to sleep through the night without waking up in pain (at least 6 hours of sleep) Goal Progress: Not Progressing Goal 3:: Increase c-spine AROM to 100% Rot B and flexion and 75% ext AROM Goal Progress: Progressing - Plan Plan: DC PT to Physician referral as traction, MT, US and postural exercises only give temporary relief. - D/C Information Discharge Comments: DC PT back to physician If there are questions or concerns regarding this patient's physical therapy, please feel free to call me at [phone]. Thank you for the referral of this patient. Sincerely, Christine Mitchell <Electronically signed by Christine BATISTA> 05/12/18 0948 CC: No Primary Care Physician; OUT OF TOWN DOCTOR Signed INITAL EVALUATION (1) Observed: 04/04/2018 Status: F Source: [place] - [place] 5:31 PM [facility] REPOSITORY [facility] Physical Therapy [facility] [address] [place], [place] [address] Fax REHABILITATION SERVICES INITIAL EVALUATION MR#: [id number] Acct: [id number] Name: PATGasperRACHEL M Rep #: [id number] : 1970 47 From: Christine BATISTA Referring DrJaron: Status: REG RCR Insurance[facility] [employer] Patient's Visit Information RACHEL LADD is a 47 year old F referred to Physical Therapy by LEO TONEY with a diagnosis of cervical spondylosis w/o myelopathy. Date of Evaluation: 04/04/18 Physical Therapist: Christine Mitchell - Visit Plan Frequency: 2x /Week Duration: 4 Weeks Plan: 2X/ week for 4 weeks for c-spine AROM, MT to B c-spine paraspinals, manual distracton, if ok with manual distraction may proceed to mechanical traction, postural exercises with modalitites as needed - Subjective Subjective: Pt reports neck issues for about 10 year and it comes and goes. About 10 years ago she was with her daughter at on one of the kiddie rides and that seemed to be what started it. They did an x-ray. She did an MRI 7 years ago. Normally she gets injections in her neck but insurance wants PT first. Neck pain is in the middle of neck and into shoulders on the R side and has not gone into R arms as of yet. It does go into the fingers if she drives or depending on what she is doing. If she gets the injections and stays ahead of it then it does not go into fingers. She has noticed min weakness in her arms. She can not sleep because of the neck pain and hard to get comfortable. Injections generally lasted painwise about 2 months. SHe has had PT for her neck before with stretching the neck (traction) annd US and those have been the most beneficial. She has exercise bands that she is doing at home. 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 C-spine AROM: 75% Rot B, 75% flexion, Ext 25%. UE MMT: B flexion 4-/5, B hip abd 4-/5, ER B 4-/5, IR B 4/5. Palpation: tender occiput region, B c-spine paraspinals. Pt felt better with c-spine distraction (improved rotation AROM after). Posture: sits with rounded shoulders and fw shoulders and slight fw head - Goals Goal 1:: I HEP Goal Time Frame: 4-6 Weeks Goal 2:: Be able to sleep through the night without waking up in pain (at least 6 hours of sleep) Goal Time Frame: 4-6 Weeks Goal 3:: Increase c-spine AROM to 100% Rot B and flexion and 75% ext AROM Goal Time Frame: 4-6 Weeks - Rehabilitation Potential Rehabilitation Potential: Good - Anticipated Interventions Patient/Client Instruction: Educate patient on: Plan of Care For the Purpose of:: To decrease pain, To increase ROM, To improve nutrient delivery to tissue, To improve muscle performance and motor function, To improve ability to perform ADL's, To increase tolerance to activity/condition/position, To improve ability of physical actions for home/community/work/leisure, To improve health of tissue, To decrease soft tissue restriction, To increase flexibility/ROM Therapeutic Exercise to Include: Strength training, Postural training, Flexibilty training, Passive ROM, Active ROM, Scapular Strength/Stabilization For the Purpose of:: To decrease pain, To increase ROM, To improve nutrient delivery to tissue, To improve muscle performance and motor function, To improve ability to perform ADL's, To increase tolerance to activity/condition/position, To improve health of tissue, To decrease soft tissue restriction, To increase flexibility/ROM Manual Therapy Techniques to Include: Passive ROM, Functional dry needling, Soft tissue mobilization For the Purpose of:: To decrease pain, To increase ROM, To improve nutrient delivery to tissue, To improve muscle performance and motor function, To improve ability of physical actions for home/community/work/leisure, To improve health of tissue, To decrease soft tissue restriction, To increase flexibility/ROM IF ES: Yes Cryotherapy (ice pack, ice massage): Yes Ultrasound (thermal/non thermal): Yes For the Purpose of:: To decrease pain, To increase ROM, To improve nutrient delivery to tissue, To improve muscle performance and motor function, To improve ability to perform ADL's, To improve health of tissue, To decrease soft tissue restriction, To increase flexibility/ROM Thank you for the opportunity to evaluate your patient. For Medicare and Medicare HMO plans, please review the plan of care and approve it. It will need to be FAXED BACK to us at [phone] for Medicare purposes. Please let me know if there are questions or concerns regarding this plan of care. Physician Signature: Date: <Electronically signed by Christine BATISTA> 04/04/18 1731 CC: No Primary Care Physician; OUT OF TOWN DOCTOR Signed For Medicare only, by signing this I certify the plan of care. Physicians Signature Date SCREENING MAMM (CAD), Observed: 01/10/2018 Status: F Source: [place] 12:37 PM [facility] REPOSITORY [facility] Imaging Services [address] [place] [address] SCREENING MAMM (CAD), BILAT MR#: [id number] Acct: [id number] Name: RACHEL LADD Rep #: [id number] : 1970 F 47 From: Zia Dial MD PCP: Care Physician, No Primary Status: REG CLI Study: SCREENING MAMM (CAD), BILAT Date of Exam: 01/10/18 Exam# [id number] Ordering Dr: Parminder Barney MD MAMMOGRAPHY - BILATERAL SCREENING REASON FOR EXAM: Female, 47 years old. Routine annual screening examination. PERTINENT HISTORY: Non-contributory. TECHNIQUE: Digital bilateral breast kristine (3D mammographic acquisition) in the CC and MLO projections. 2-D mediolateral oblique (MLO) and craniocaudad (CC) views of both breasts were obtained. CAD: Full Field Digital Mammography with Computer Added Detection was performed. COMPARISON: None. Baseline examination. FINDINGS: Breast Composition: The breasts are heterogeneously dense, which may obscure small masses. There are no dominant masses or suspicious calcifications. No other significant abnormalities are identified. BI/SCREENING MAMM (CAD), BILAT IMPRESSION: Negative screening mammogram. Yearly followup mammogram recommended. (A) ASSESSMENT CATEGORY: BIRADS Category 1: Negative. A letter regarding these results will be sent to the patient by the facility within 30 days. Approximately 10% of breast cancers are not detected by mammography. A normal mammogram should not delay biopsy of a clinically suspicious abnormality. [id number] Electronically Signed: Zia Dial MD at 13:52 EDT Tel [phone], Service support , CC: No Primary Care Physician; Parminder Barney MD Lode Miner: Signed Observed: 11/04/2017 Status: F Source: [place] CULTURE, URINE 11:45 AM [facility] REPOSITORY Urine Culture ORGANISM 1: Presumptive E. coli Blue Grass Count >100,000 Presumptive E. coli: REACTION Amoxacillin/Clavulanic Acid $ <=2 S Ampicillin $ <=2 S Ampicillin/Sulbactam $ <=2 S Cefazolin $ <=4 S Cefepime $ <=1 S Ceftriaxone $ <=1 S Ciprofloxacin $ <=0.25 S ESBL - Ertapenim $$$ <=0.5 S Gentamicin $ <=1 S Imipenem *NF <=0.25 S Levofloxacin $ <=0.12 S Nitrofurantoin $ <=16 S Piperacillin/Tazobactam $$ <=4 S Tobramycin $ <=1 S Trimethoprim/Sulfametho $ <=20 S (NF) indicates non-formulary drug at [facility]. Approval by Infectious Disease Specialist required before non-formulary drugs may be ordered and/or dispensed. Performed By: #### M100.0650 #### [facility] [address] [place], [address] ALLERGIES ALLERGIES DATE TYPE / CODE NAME / CODE REACTION SEVERITY SOURCE 10/06/2018 Drug codeine/F006 Vomiting Unknown [facility] Allergy/4160 038248([facility] 30247(SNOMED M) Repository CT) 10/06/2018 Drug hydrocodone/ Vomiting Unknown [facility] Allergy/4160 [id number](R [facility] 35916(SNOMED XNORM) Repository CT) 10/06/2018 Drug latex/A44639 Hives Unknown [facility] Allergy/4160 8921(RXNORM) [facility](SNOMED Repository CT) 09/21/2018 Drug acetaminophe Vomiting Unknown [facility] Allergy/4160 n/[id number] [facility](SNOMED (RXNORM) Repository CT) ENCOUNTERS ENCOUNTERS ADMIT/DISCHARGE ACCOUNT ADMITTING ENCOUNTER LOCATION SOURCE NUMBER CLASS 10/06/2018 [id number] Ambulatory Kavon Crosby 8 [facility] ing:HPRAD Repository 10/06/2018/ [id number] Ambulatory BMSBuilding:B Kavon 9 5 [facility] Repository 09/22/2018/ [id number] Ambulatory Kavon Crosby 8 8 [facility] ing:SDCRoom: Repository AC02 09/22/2018/ [id number] Ambulatory BMSBuilding:B Crosby 8 3 MS.[facility] Repository 09/21/2018 [id number] Ambulatory Kavon Kavon 9 [facility] ing:HPRAD Repository 09/21/2018/ [id number] Ambulatory BMSBuilding:B Crosby 8 7 [facility] Repository 09/14/2018 [id number] Ambulatory Kavon Kavon 7 [facility] Hospital ing:HPRAD Repository 09/14/2018/ [id number] Ambulatory BMSBuilding:B Kavon 8 8 [facility] Repository 09/09/2018/ [id number] Emergency Kavno Kavon 8 0 [facility] Hospital ing:ED Repository 06/28/2018 [id number] Ambulatory Kavon Crosby 0 [facility] Hospital ing:MTLAB Repository 05/12/2018/ [id number] Ambulatory Kavon Kavon 8 8 [facility] Hospital ing:PT Repository 01/10/2018 [id number] Ambulatory Kavon Crosby 4 [facility] Hospital ing:OPBI Repository 11/04/2017 [id number] Ambulatory Crosby Kavon 1 [facility] ing:LABSPEC Repository PAYERS PAYERS ENCOUNTER GUARANTOR PAYER SUBSCRIBER SOURCE 10/06/2018 RICKI R Primary RICKI R Kavon [id number] Insurance:ANTHEMPolic JAQUETDOB: [facility] y [place]: [id number] [id number] Repository 65916Dlz: (330) ve Date:6383-57-12MV [phone] () [id number] [place] [address] 30020VR: 10/06/2018 Secondary RACHEL M Kavon Insurance:[facility] JAQUETDOB: [facility] [id number] Hospital Number: Repository [id number] Date:9498-62-15GS [address] [place] [address] 78882AR: 10/06/2018 Tertiary NOT GIVENUNK Kavon Insurance:SELF PAY [facility] Number: Effective Repository Date:2018-10-06 10/06/2018 RICKI R Primary RICKI R Kavon [id number] Insurance:ANTHEMPolic JAQUETDOB: [facility] y Number: [id number] [id number] Repository 55124Jqo: (330) ve Date:0161-78-89RV [phone] () [address]DAQJPDQ, [place] [address]VV: 10/06/2018 Secondary RACHEL M Crosby Insurance:[facility] JAQUETDOB: [facility] [id number] Hospital Number: Repository [id number] Date:6271-09-97FG [address] [address]DR: 10/06/2018 Tertiary NOT GIVENUNK Crosby Insurance:SELF PAY [facility] Number: Effective Repository Date:2018-10-06 09/22/2018 RICKI R Primary RICKI R Crosby [id number] Insurance:ANTHEMPolic JAQUETDOB: [facility] y Number: [id number] [id number] Repository 52589Zlf: (330) ve Date:8279-18-98LV [phone] (HP) [address] [place] [address] [place] [address]KL: 09/22/2018 Secondary RACHEL M Kavon Insurance:[facility] JAQUETDOB: [facility] [id number] Hospital Number: Repository [id number] Date:1067-72-22XX [address] [place] [address] 14718UG: 09/22/2018 Tertiary NOT GIVENUNK Kavon Insurance:SELF PAY [facility] Hospital Number: Effective Repository Date:2018-09-21 09/22/2018 RICKI R Primary RICKI R Crosby [id number] Insurance:ANTHEMPolic JAQUETDOB: [facility] y Number: [id number], [place] [id number] Repository 24752Zxt: (330) ve Date:2950-06-25MC [phone] (HP) [address] [place] [address] 13029BZ: 09/22/2018 Secondary RACHEL M Crosby Insurance:[facility] [id number] Hospital Number: Repository [id number] Date:6166-39-46VN [address] [address]SY: 09/22/2018 Tertiary NOT GIVENUNK Kavon Insurance:SELF PAY [facility] Hospital Number: Effective Repository Date:2018-09-22 09/21/2018 RICKI R Primary RICKI R Crosby [id number] Insurance:ANTHEMPolic JAQUETDOB: [facility] y Number: [id number] [id number] Repository 29025Klq: (330) ve Date:3946-78-52KM [phone] (HP) [address]XLSAR [place] [address]NZ: 09/21/2018 Secondary RACHEL M Crosby Insurance:[facility] JAQUETDOB: [facility] [id number] Hospital Number: Repository [id number] Date:1297-75-61JV [address] 368[address]JK: 09/21/2018 Tertiary NOT GIVENUNK Crosby Insurance:SELF PAY [facility] Number: Effective Repository Date:2018-09-21 09/21/2018 RICKI R Primary RICKI R Crosby [id number] Insurance:ANTHEMPolic JAQUETDOB: [facility] y Number: [id number], [place] [id number] Repository 93202Jos: (330) ve Date:4233-40-34YW [phone] () [address] [place] [address] 11713RK: 09/21/2018 Secondary RACHEL M Crosby [facility] [id number] Hospital Number: Repository [id number] Date:2005-96-52VX [address] [address]VH: 09/21/2018 Tertiary NOT GIVENUNK Kavon Insurance:SELF PAY [facility] Number: Effective Repository Date:2018-09-21 09/14/2018 RICKI R Primary RICKI R Kavon [id number] Insurance:ANTHEMPolic JAQUETDOB: [facility] y Number: [id number] [facility] Community [id number] Repository 65624Eqs: (330) ve Date:1290-28-31OI [phone] () [id number] [place] [address] 08417TA: 09/14/2018 Secondary RACHEL M Kavon Insurance:[facility] JAQUETDOB: [facility] [id number] Hospital Number: Repository [id number] Date:2464-30-40HF [address] 77[address]CB: 09/14/2018 Tertiary NOT GIVENUNK Kavon Insurance:SELF PAY [facility] Number: Effective Repository Date:2018-09-14 09/14/2018 RICKI R Primary RICKI R Crosby [id number] Insurance:ANTHEMPolic JAQUETDOB: [facility] y Number: [id number], [place] [id number] Repository 89[address]Aua: (330) ve Date:2672-26-52CT [phone] () [address] [place] [address] 30695XA: 09/14/2018 Secondary RACHEL M Kavon Insurance:[facility] JAQUETDOB: [facility] [id number] Hospital Number: Repository [id number] Date:1537-37-46WD [address] [address]PS: 09/14/2018 Tertiary NOT GIVENUNK Crosby Insurance:SELF PAY [facility] Number: Effective Repository Date:2018-09-13 09/09/2018 RACHEL M Primary RICKI R Crosby [id number] Insurance:ANTHEMPolic JAQUETDOB: [facility] y Number: [id number], [place] [id number] Repository 59921Qek: (330) ve Date:1942-83-21MU [phone] () [id number] [place] [address] 12365CW: 09/09/2018 Secondary RACHEL M Kavon Insurance:[facility] JAQUETDOB: [facility] [id number] Hospital Number: Repository [id number] Date:2124-86-20PJ [address] 801[address]LR: 09/09/2018 Tertiary NOT GIVENUNK Crosby Insurance:SELF PAY [facility] Number: Effective Repository Date:2018-09-09 06/28/2018 RACHEL M Primary Rciki R Crosby [id number] Insurance:ANTHEMPolic JaquetDOB: [facility] y Number: [id number], [place] [id number] Repository 92219Vrq: (330) ve Date:5033-01-55NA [phone] (HP) [address]HVYVDJU[address] [place] [address] 27395JO: 06/28/2018 Secondary RACHEL M Crosby Insurance:[facility] JAQUETDOB: [facility] [id number] Hospital Number: Repository [id number] Date:1163-96-03LW [address] [place] [address] 89458NZ: 06/28/2018 Tertiary NOT GIVENUNK Crosby Insurance:SELF PAY [facility] Hospital Number: Effective Repository Date:2018-06-28 05/12/2018 Rachel M Primary Ricki R Kavon [id number] Insurance:ANTHEMPolic JaquetDOB: [facility] y Number: [id number] Seattle Community [id number] Repository 04566Bvj: (330) ve Date:5980-95-58AA [phone] (HP) [address] [place] [address] 90541EM: 05/12/2018 Secondary Rachel M Crosby [facility]: [facility] [id number] Hospital Number: Repository [id number] Date:4867-16-86FK [address] [address]YE: 05/12/2018 Tertiary NOT GIVENUNK Kavon Insurance:SELF PAY [facility] Hospital Number: Effective Repository Date:2018-03-21 01/10/2018 Rachel M Primary Ricki R Crosby [id number] Insurance:ANTHEMPolic JaquetDOB: [facility] y Number: [id number].[facility] [id number] Repository [place] ve Date:2796-81-80XH 34719Fxh: (330) [address]XJPDKLB, [place] [phone] (HP) 39150CM: 01/10/2018 Secondary Rachel M Kavon Insurance:[facility] JaquetDOB: [facility] [id number] Hospital Number: Repository [id number] Date:2447-96-43FV [address] [place] [address] 01297WG: 01/10/2018 Tertiary NOT GIVENUNK Crosby Insurance:SELF PAY [facility] Number: Effective Repository Date:2017-12-15 11/04/2017 Rachel Carrilloquet[address] Insurance:ANTHEMPolic SonyB: [facility] Number: [id number] [facility] [id number] Repository [place] ve Date:2869-44-05GB 995[address]Cvx: 330 [address]ZLATRWH, [place] [phone] () 85[address]WP: 11/04/2017 Secondary NOT GIVENUNK Kavon Insurance:SELF PAY [facility] Number: Effective Repository Date:2017-11-04
== END ==
PROVIDERS: Referring Provider Orthopaedic Surgery; Visit Provider Orthopaedic Surgery
DX: S52.502A Unspecified fracture of the lower end of left radius, initial encounter for closed fracture (principal); S52.602A Unspecified fracture of lower end of left ulna, initial encounter for closed fracture; X58.XXXA Exposure to other specified factors, initial encounter
CPT/HCPCS: 73110

== ENCOUNTER → 2018-09-21 15:21 | Outpatient (CLI) | payer BC, MEDICAID, SELFPAY ==
[2018-09-14 08:14] VITALS: BMI 21.4
--- NOTE | 2018-09-21 15:23 | RAD_ITS ---
STUDY: X-RAY - LEFT WRIST REASON FOR EXAM: Female, 48 years old. Follow-up of fracture. TECHNIQUE: 3 view(s) of the wrist through casting material were obtained. COMPARISON: September 14, 2018 FINDINGS: There is generalized osteopenia. Fractures of the distal radius and ulna are stable with follow-up or angulation at the fracture site and impaction at the fracture site. 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 Normal second through fifth carpometacarpal articulations. Normal visualized metacarpal bones. The soft tissue structures are unremarkable. RAD/Wrist min 3 Views IMPRESSION: Stable appearance of the wrist with no change and no complications. Electronically Signed: Anselmo De Souza MD at 14:19 EST , Service support ,
== END ==
PROVIDERS: Referring Provider Orthopaedic Surgery; Visit Provider Orthopaedic Surgery
DX: S62.102A Fracture of unspecified carpal bone, left wrist, initial encounter for closed fracture (principal); X58.XXXA Exposure to other specified factors, initial encounter
CPT/HCPCS: 73110

== ENCOUNTER 2018-09-22 10:25 | Day surgery (SDC) | payer BC, MEDICAID, SELFPAY ==
[2018-09-14 08:14] VITALS: BMI 21.4
[2018-09-22] VITALS (7 sets, daily range): BP systolic 118–146; BP diastolic 80–85; PULSE 78–96; RESP 14–17; TEMP 36.8–37.1; O2SAT 92–100; BMI 21.2
--- NOTE | 2018-09-22 11:43 | DCINST_ITS ---
Discharge Diet: No Restrictions - leave dressing intact, if incision gets wet- change dressing, call with concerns, follow up in 2 weeks in clinic Discharge Activity: May Not Drive May shower in (days): 1 Ice area for (Minutes): 20 - Every hour while awake. Weight Bearing Status: Weight bearing as tolerated Keep extremity elevated above heart level: Operative Extremity Call your doctor if your incision/area has: Continuous Slow Oozing, Sudden Increased Bleeding, Increased Pain/ Swelling, Increased Redness, Foul Smelling Discharge Call your doctor if you observe: Fever of 101 or Higher, Coldness, Increased Pain, Numbness or Tingling, Change in Color, Calf discomfort Allergies/Adverse Reactions: Allergies latex Allergy (Verified 09/22/18 10:45) Hives codeine Adverse Reaction (Verified 09/22/18 10:45) Vomiting hydrocodone [From Vicodin] Adverse Reaction (Verified 09/22/18 10:45) Vomiting Medications to take at Discharge Dimenhydrinate [Motion Sickness] 50 mg PO QHS 12/27/16 Sumatriptan Succinate [Imitrex] 100 mg PO PRN PRN 12/27/16 Estradiol 1 mg PO DAILY 08/18/17 Naproxen [Naprosyn] 500 mg PO BID PRN 09/22/18 Omeprazole Magnesium [Prilosec Otc] 20 mg PO PRN PRN 09/22/18 Oxycodone HCl/Acetaminophen [Percocet 2.5-325 mg Tablet] 1 tablet PO TID PRN PRN 09/22/18 Primary Care Physician: Care Physician,No Primary [Primary Care Provider] - Test Results: Test results from this visit will be discussed in further detail at your follow- up appointment, if applicable. Please Follow Up With: Cristina Gomez, DO - [phone]
--- NOTE | 2018-09-22 11:44 | OP.PCM_ITS ---
Report of Operation Date of Procedure: 09/22/18 Pre-Operative Diagnosis: left displaced extraarticular distal radius fracture Post-Operative Diagnosis: same Surgery/Procedure Performed:: orif left distal radius with synthes DR plate resource specialist: Regis Naranjo Type of Anesthesia:: General Anesthesiologist: Apolinar Barney Estimated Blood Loss (mL): minimal Fluids Replaced: 1000ml lr Description of Procedure: Preoperative note Patient is a 48-year-old female who fell onto outstretched left hand. Stated deformity was reduced in the ER. She presented in the office we casted her she had to miss dorsal comminution and fell back into extension incision was made with the patient between a closed reduction and pinning versus a open reduction internal fixation. She would like to proceed with open reduction internal fixation to the fact that she would have not have to be in a cast for his lawn and or nor pull out pins in the office. Risks benefits and alternatives surgery discussed with patient. Risks including but not limited to blood loss, blood clot, infection, neurovascular injury, failure procedure, loss of life and loss of limb. Patient is aware and would like proceed with ORIF left wrist. Operative note Patient seen and examined preoperative holding area. Left hand was marked. Patient brought to the operating placed supine on the operating table. Signing, anesthesia, antibiotics were administered. Left arm was prepped and draped in usual sterile fashion with a tourniquet around her upper arm. Marked out our incision for our plate placement timeout was performed. Left leg the left arm was elevated exsanguinated and tourniquet was raised to pressure 250 torr. We then used a 15 blade to cut through the skin over top of the FCR and then dissected down tenotomies of the FCR FCR was released ulnarly the FCR fascia was also released we dissected down to the pronator quadratus pronator quadratus was elevated starting medially at the radial styloid and moving proximally using a brito elevator. We then were able to visualize the fracture site. We debrided the first fracture site with a dental pick. We then irrigated the incision with copious muscle sterile saline. Picked out our 2.4 variable angle will observe L at 2.4 to calm volar distal radius plate and placed it on to ensure that we had a good size which we did have. We then placed 2 cortical screws one in the radial styloid and the second 1 just ulnar to this after placing a K wire through the plate and ascertain the level that that we need to be from a proximal distal medial lateral. After he placed our 2 cortical screws we also made sure that we had almost the kickstand effect of the proximal shaft of the plate in order to further reduce the fracture site because she has quite extensive dorsal comminution again. We then placed variable angle of the 2.4 locking screws distally placed our shaft screws proximally were able to have neutralization of our volar tilt. We then filled and the remaining distal holes with locking screws through the more proximal row of the distal rows. We then irrigated the incision with copious muscle sterile saline. The pronator quadratus was tacked down to the periosteum. We closed the skin with 3-0 Vicryl and the skin with 4-0 running Monocryl. Tourniquet was inflated for total working time of 80 minutes. Patient tolerated procedure well no comp complications transferred to recovery room in stable condition. Postoperative note Patient has Percocet at home this Nonweightbearing left arm Follow-up in 2 weeks for initiation of occupational therapy removal of splint Call with increased pain numbness tingling or further issues arise This note was generated with [employer] dictation software. It may contain incorrect words, spelling, and punctuation that were not noted in checking the note before signing.
--- NOTE | 2018-09-22 12:40 | RAD_ITS ---
STUDY: X-RAY - LEFT WRIST REASON FOR EXAM: ORIF left wrist. TECHNIQUE: 4 view(s) of the wrist were obtained. COMPARISON: Radiographs 09/21/2018. FINDINGS: There is an orthopedic plate and screws transfixing a distal radial fracture in anatomical alignment and position. There is a nondisplaced fracture of the ulnar styloid process. Electronically Signed: Gopi Cohn MD at 15:45 EST Tel , Service support , RAD/Wrist 2 Views
[2018-09-22] MEDS: Cefazolin 2 GM in 0.9% Normal Saline 100 ML IV (13:50)
[2018-09-22] MEDS: Mupirocin Ointment 22gm Tube 1 APPLIC (14:31)
[2018-09-22] MEDS: HYDROcodone Bitartrate/Apap 5/325 Tablet PO (17:02)
== END 2018-09-22 17:32 | disposition home or self-care (01) ==
LOC: SDC 10:26 → AC 10:27
PROVIDERS: Referring Provider Orthopaedic Surgery; Visit Provider Orthopaedic Surgery
PROC: (CPT 25607; principal; 2018-09-22 12:25)
DX: S52.552A Other extraarticular fracture of lower end of left radius, initial encounter for closed fracture (principal); W19.XXXA Unspecified fall, initial encounter; K50.90 Crohn's disease, unspecified, without complications; K21.9 Gastro-esophageal reflux disease without esophagitis; G43.909 Migraine, unspecified, not intractable, without status migrainosus; F17.200 Nicotine dependence, unspecified, uncomplicated; Z79.899 Other long term (current) drug therapy
CPT/HCPCS: 01830; 25607; 73100; 76000; C1713; J7120; J2405

== ENCOUNTER → 2018-10-06 08:48 | Outpatient (CLI) | payer BC, MEDICAID, SELFPAY ==
[2018-10-06 08:48] VITALS: BMI 21.2
--- NOTE | 2018-10-06 08:51 | RAD_ITS ---
STUDY: X-RAY - LEFT WRIST REASON FOR EXAM: Female, 48 years old. Fracture follow-up following surgical fusion TECHNIQUE: 3 view(s) of the wrist were obtained. COMPARISON: 09/22/2018, 09/21/2019 FINDINGS: Fixation plate and screws spanning distal radial fracture similar in alignment as compared to 09/22/2018. Persistent fracture line is identified. No malalignment. Ulnar styloid fractures again demonstrated. Bony detail obscured by material. Normal radiocarpal articulation. Normal distal radioulnar articulation. Normal carpal bones. Normal carpal articulations. Normal carpometacarpal articulation of the thumb. Normal second through fifth carpometacarpal articulations. Normal visualized metacarpal bones. The soft tissue structures are unremarkable. RAD/Wrist min 3 Views IMPRESSION: 1. Stable alignment of distal radial fracture with orthopedic fusion hardware. 2. Nondisplaced ulnar styloid fracture. Electronically Signed: Fortino Leon MD at 7:16 EST , Service support ,
== END ==
PROVIDERS: Referring Provider Physician Assistant; Visit Provider Physician Assistant
DX: S52.502A Unspecified fracture of the lower end of left radius, initial encounter for closed fracture (principal); S52.615A Nondisplaced fracture of left ulna styloid process, initial encounter for closed fracture; X58.XXXA Exposure to other specified factors, initial encounter
CPT/HCPCS: 73110

== ENCOUNTER → 2018-11-01 14:55 | Outpatient (CLI) | payer BC, MEDICAID, SELFPAY ==
[2018-11-01 14:52] VITALS: BMI 21.2
--- NOTE | 2018-11-01 14:58 | RAD_ITS ---
STUDY: X-RAY - LEFT WRIST REASON FOR EXAM: Female, 48 years old. Pain. Status post ORIF. TECHNIQUE: 2 view(s) of the wrist were obtained. COMPARISON: 10/06/2018. FINDINGS: Normal visualized distal radius and ulna. Normal radiocarpal articulation. Normal distal radioulnar articulation stable appearance of compression plate and screws fixating radial metaphyseal fractures into anatomic alignment and position. Fracture lines are still evident. Stable appearance of nondisplaced fracture of the ulnar styloid. RAD/Wrist 2 Views IMPRESSION: No change. Fractures of the distal radius remain in anatomic alignment and position. Electronically Signed: Helio Aragon MD at 16:19 EST , Service support ,
== END ==
PROVIDERS: Referring Provider Physician Assistant; Visit Provider Physician Assistant
DX: M25.532 Pain in left wrist (principal)
CPT/HCPCS: 73100

== ENCOUNTER → 2019-03-12 10:42 | Outpatient (CLI) | payer BC, MEDICAID, SELFPAY ==
[2018-11-01 14:52] VITALS: BMI 21.2
[2019-03-12 12:27] LABS: Erythrocyte Sedimentation Rate 6 mm/hr (0-20)
[2019-03-12 12:28] LABS: Absolute Neutrophil Count 5.2 X10^3/uL (2.0-7.7); Basophil# 0.02 X10^3/uL; Basophil% 0.2 % (0-1); Hematocrit 45.1 % (37-47); Hemoglobin 15.6 g/dl (12.0-15.0); Lymphocyte % 31.4 % (19-41); Mean Corp Hgb Conc 34.6 g/gl (32-36); Mean Corpuscular Hgb 33.4 pg (27.0-32.0); Mean Corpuscular Volume 96.6 fL (81-99); Mean Platelet Vol. 10.7 fl (6.2-12.0); Monocyte# 0.43 X10^3/uL; Monocyte% 5.2 % (0-10); Neutrophil # 5.21 X10^3/uL (2.7-7.7); Neutrophil % 63.1 % (47-70); Platelet Count 240 K/mm3 (150-450); RBC Distribution Width SD 52.8 fl (35.1-43.9); Red Blood Count 4.67 M/mm3 (4.2-5.4); White Blood Count 8.3 K/mm3 (4.4-11.0)
[2019-03-12 12:29] LABS: POSITIVE COUNT NO; POSITIVE DIFFERENTIAL NO; POSITIVE MORPHOLOGY NO
[2019-03-12 12:38] LABS: CRP 4.98 mg/L (0.0-3.0)
== END ==
DX: S52.572A Other intraarticular fracture of lower end of left radius, initial encounter for closed fracture (principal)
CPT/HCPCS: 36415; 85025; 85652; 86140

== ENCOUNTER → 2019-07-10 08:04 | Outpatient (CLI) | payer BC, MEDICAID, SELFPAY ==
[2018-11-01 14:52] VITALS: BMI 21.2
--- NOTE | 2019-07-10 08:09 | BI_ITS ---
BILATERAL DIGITAL MAMMOGRAM WITH TOMOSYNTHESIS: Mediolateraloblique and craniocaudal views demonstrate no evidence of dominant parenchymal masses. No cluster of microcalcification or architectural distortion is seen. No evidence of skin thickening. No significant change since 01/10/2018 . Breast Density: There are scattered areas of fibroglandular density. CAD was used to assist in final assessment. IMPRESSION: NORMAL MAMMOGRAM BILATERALLY. FINAL ASSESSMENT: BIRAD 1 (NEGATIVE) YEARLY MAMMOGRAM RECOMMENDED Approximately 10% of breast cancers are not detected by mammography. A normal mammogram should not delay biopsy of a clinically suspicious abnormality. Electronically Signed: Parminder Gamboa, at 18:23 EDT Tel , Service support , BI/SCREEN MAMM (CAD) W/HARVEY COPE
== END ==
PROVIDERS: Referring Provider Obstetrics & Gynecology; Visit Provider Obstetrics & Gynecology
DX: Z12.31 Encounter for screening mammogram for malignant neoplasm of breast (principal)
CPT/HCPCS: 77063; 77067

== ENCOUNTER → 2019-08-03 09:17 | Outpatient (CLI) | payer BC, MEDICAID, SELFPAY ==
[2018-11-01 14:52] VITALS: BMI 21.2
--- NOTE | 2019-08-03 09:25 | RAD_ITS ---
STUDY: X-RAY - LUMBAR SPINE REASON FOR EXAM: Female, 49 years old. Pain TECHNIQUE: 3 view(s) of the lumbar spine were obtained. COMPARISON: None FINDINGS: Normal lumbar lordosis. There is no substantial scoliosis. There is a normal alignment of the vertebrae. Normal vertebral bodies and endplates. Normal disc space heights. There is minimal facet arthropathy L5-S1. There may be mild neural foraminal narrowing L5-S1. The soft tissue structures are unremarkable. RAD/Lumbar Spine 2 or 3 Views IMPRESSION: Minimal degenerative change. No visualized acute fracture. Electronically Signed: Kathleen Aguilar MD at 15:03 EST Tel , Service support ,
== END ==
DX: S33.5XXA Sprain of ligaments of lumbar spine, initial encounter (principal); X58.XXXA Exposure to other specified factors, initial encounter
CPT/HCPCS: 72100

== ENCOUNTER → 2020-06-26 11:42 | Outpatient (CLI) | payer BC, MEDICAID, SELFPAY ==
[2018-11-01 14:52] VITALS: BMI 21.2
== END ==
PROVIDERS: Visit Provider Obstetrics & Gynecology
DX: N39.0 Urinary tract infection, site not specified (principal)
CPT/HCPCS: 87086; 87088; 87186

== ENCOUNTER → 2020-07-23 10:30 | Outpatient (CLI) | payer BC, MEDICAID, SELFPAY ==
[2018-11-01 14:52] VITALS: BMI 21.2
--- NOTE | 2020-07-23 10:32 | BI_ITS ---
MAMMOGRAPHY - BILATERAL SCREENING REASON FOR EXAM: Female, 50 years old. Routine annual screening examination. PERTINENT HISTORY: Non-contributory. TECHNIQUE: Digital bilateral breast harvey (3D mammographic acquisition) in the CC and MLO projections. 2-D mediolateral oblique (MLO) and craniocaudad (CC) views of both breasts were obtained. CAD: Full Field Digital Mammography with Computer Added Detection was performed. COMPARISON: Comparison is made with prior study dated 07/10/2019 and 01/10/2018. FINDINGS: Breast Composition: The breasts are heterogeneously dense, which may obscure small masses. There are no dominant masses or suspicious calcifications. No other significant abnormalities are identified. There has been no significant change since the prior study. BI/SCREEN MAMM (CAD) W/HARVEY BILAT IMPRESSION: Stable bilateral screening mammogram. Yearly follow-up mammogram recommended. (A) ASSESSMENT CATEGORY: BIRADS Category 1: Negative. A letter regarding these results will be sent to the patient by the facility within 30 days. Approximately 10% of breast cancers are not detected by mammography. A normal mammogram should not delay biopsy of a clinically suspicious abnormality. [id number] Electronically Signed: Zia Dial, at 11:47 EDT , Service support ,
--- NOTE | 2020-07-23 10:49 | BD_ITS ---
STUDY: DUAL ENERGY X-RAY ABSORPTIOMETRY / DXA REASON FOR EXAM: Female, 50 years old. 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 COMPARISON: None. FINDINGS: Lumbar Spine (L1-L4): g/cm2 (1.149) / T-score (-0.3) / Z-score (0.0) Findings are suggestive of normal bone density with a low fracture risk. Left Femur Total: g/cm2 (0.921) / T-score (-0.7) / Z-score (-0.3) Left Femoral Neck: g/cm2 (0.946) / T-score (-0.7) / Z-score (0.0) Right Femur Total: g/cm2 (0.903) / T-score (-0.8) / Z-score (-0.4) Right Femoral Neck: g/cm2 (0.937) / T-score (-0.7) / Z-score (0.0) BD/Dexa Bone Density Study IMPRESSION: The patient is considered normal as outlined below according to World Miky Organization (WHO) criteria with a low fracture risk. Reference Information: The T-score is the number of standard deviations above or below the standard which is normal for young adults at their peak bone mineral density. The World Health Organization (WHO) interprets the T-scores as follows: Above -1 Normal bone density Between -1 and -2.5 Osteopenia Equal to / or below -2.5 Osteoporosis As a practical clinical guideline, osteopenia may be graded as follows: Mild -1 through -1.5 Moderate -1.6 through -2.0 Severe -2.1 through -2.4 The Z-score is the number of standard deviations above or below age-matched controls. A Z-score of less than -1.5 would be considered abnormal. References: 1. NIH Osteoporosis and Related Bone Diseases www osteo.org 2. International Society for Clinical Densitometry www iscd.org 3. National Osteoporosis Foundation www nof.org Electronically Signed: Zia Dial, at 14:12 EDT , Service support ,
== END ==
PROVIDERS: Referring Provider Obstetrics & Gynecology; Visit Provider Obstetrics & Gynecology
DX: Z12.31 Encounter for screening mammogram for malignant neoplasm of breast (principal); M81.0 Age-related osteoporosis without current pathological fracture
CPT/HCPCS: 77063; 77067; 77080

== ENCOUNTER 2020-09-24 09:00 | Outpatient (RCR) | payer BC, MEDICAID, SELFPAY ==
[2018-11-01 14:52] VITALS: BMI 21.2
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
== END 2020-09-24 19:00 | disposition home or self-care (01) ==
LOC: PT 09:00
DX: M47.812 Spondylosis without myelopathy or radiculopathy, cervical region (principal)
CPT/HCPCS: 97035; 97140; 97162

== ENCOUNTER → 2021-09-09 10:53 | Outpatient (CLI) | payer MEDICAID, SELFPAY ==
[2021-09-09 11:51] LABS: Hemoglobin 16.6 g/dL (12.0-15.0); Mean Corp Hgb Conc 33.9 g/dL (32-36); Mean Corpuscular Hgb 31.7 pg (27.0-32.0); Mean Corpuscular Volume 93.7 fL (81-99); Mean Platelet Vol. 11.1 fl (6.2-12.0); Platelet Count 209 K/mm3 (150-450); RBC Distribution Width CV 13.9 % (11.6-14.6); RBC Distribution Width SD 48.4 fl (35.1-43.9); Red Blood Count 5.23 M/mm3 (4.2-5.4); White Blood Count 8.1 K/mm3 (4.4-11.0)
[2021-09-09 12:13] LABS: Cholesterol 225 mg/dL (200); High Density Lipoprotein 40 mg/dL; Thyroid Stim Hormone (TSH) 1.59 uIU/mL (0.358-3.74); Triglycerides 109 mg/dL; Very Low Density Lipoprotein 22 mg/dL (5-40)
[2021-09-09 12:19] LABS: Hemoglobin A1c 5.1 % (3.8-5.6)
== END ==
PROVIDERS: Visit Provider Obstetrics & Gynecology
DX: N95.1 Menopausal and female climacteric states (principal); Z79.899 Other long term (current) drug therapy
CPT/HCPCS: 36415; 80061; 83036; 84443; 85027

== ENCOUNTER 2021-11-23 10:52 | Outpatient (RCR) | payer MEDICAID, SELFPAY ==
--- NOTE | 2022-05-07 11:17 | HP.PTEVAL ---
Patient's Visit Information YEVGENIY LADD is a 52 year old F referred to Physical Therapy by Dr. Taj Pillai MD with a diagnosis of S/P LUMBAR MICRODISECTOMY LEFT L4-5,DISPLACEMENT OF LUMBAR DISC WITH RAD. Date of Evaluation: 11/23/21 Physical Therapist: Michael Soriano, PT, Cert MDT, OCS - Visit Plan Frequency: 2x /Week Duration: 6 Weeks Plan: WEAN FROM LUMBAR BRACE. 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 Patient d/c DOS with lumbar surgery. Patient initially ,~ 1 year bending to put pain roller in malloy. Patient felt pop but tried to manage on own. Patient eventually had had MRI HNP L4-5. Prior to surgery symptoms radiating to foot. Patient currently surgical pain left lumbar. Aggravating factors standing, sitting affects ADL's, Unable to lift or bend and has restriction with 10 #. Alleviating factors walking . Coughing /sneezing +. Denies paresthesia/tingling . Bowel/bladder -. Difficultly with sleeping. Patient symptoms affects QOL and function and RTW. MEDS: percocet. SOCIAL: [place]. VOCATION: unemployed - Pain Bilateral Back Pain Intensity (Out of 10): 5 Pain Intensity Range: 10 - Objective POSTURE: WFL. GAIT: reciprocal pattern. INSCION: well approximate. NEURO: denies paresthesia/tingling ,reflexes L3-4,L4-5 ,L5-S1 2/3. PALPATION: tender LS. SYMMTRIES: align. MMT: quads/hams/hip 4/5,hip flexion/abduction 4-/5 ,ankle. FLEXABLITY: hamstrings WFL. LUMBAR ROM: flexion min loss. extension mod loss side glides min/mod loss. - Special Tests L/S Slump test left side: Negative L/S Slump test right side: Negative L/S Left Straight Leg Raise: Negative L/S Right Straight Leg Raise: Negative - Balance/Special Test Scores Oswestry Low Back Score: 32 - Goals Goal 1:: I with HPE for lumbar spine Goal Time Frame: 4-6 Weeks Goal 2:: Patient improve posture/body mechanics by 90 % of the time. Goal Time Frame: 4-6 Weeks Goal 3:: Patient to improve lumbar ROM for function of recover bend to tie and put on shoes Goal Time Frame: 4-6 Weeks Goal 4:: Patient to demonstrate 70 % improvement with improve function with ADL's Goal Time Frame: 4-6 Weeks Goal 5:: Patient to improve back oswestry score by 5 points or > to improve QOL Goal Time Frame: 4-6 Weeks - Rehabilitation Potential Physical Therapy Diagnosis: This patient underwent s/p lumbar discectomy 10/29/21 with decrease lumbar ROM ,strength, weakness impairs ADLS and housework tasks thus benefit from skilled PT Rehabilitation Potential: Good - Anticipated Interventions Patient/Client Instruction: Educate patient on: Condition For the Purpose of:: To decrease pain, To increase ROM, To improve muscle performance and motor function, To improve ability to perform ADL's, To increase tolerance to activity/condition/position, To improve ability of physical actions for home/community/work/leisure, To improve health of tissue, To decrease soft tissue restriction, To increase flexibility/ROM Therapeutic Exercise to Include: Strength training, Body mechanics, Postural training, Flexibilty training, Active ROM, Dynamic Lumbar Stabilization For the Purpose of:: To decrease pain, To increase ROM, To improve muscle performance and motor function, To improve ability to perform ADL's, To increase tolerance to activity/condition/position, To improve health of tissue, To decrease soft tissue restriction, To increase flexibility/ROM, To prevent re-injury TENS: Yes IF ES: Yes Cryotherapy (ice pack, ice massage): Yes Thermo therapy (hot pack): Yes For the Purpose of:: To decrease pain, To decrease swelling/inflammation, To improve health of tissue, To decrease soft tissue restriction Thank you for the opportunity to evaluate your patient. For Medicare and Medicare HMO plans, please review the plan of care and approve it. It will need to be FAXED BACK to us at [phone] for Medicare purposes. For Medicare only, by signing this I certify the plan of care. Please let me know if there are questions or concerns regarding this plan of care. Physician Signature: Date:
--- NOTE | 2022-05-07 11:18 | HP.PTDCNRP_ITS ---
YEVGENIY LADD was seen in my office for initial evaluation on 11/23/21. The following Plan of Care was established for this patient: Initial Frequency: 2x /Week Initial Duration: 6 Weeks Patient/Client Instruction: Educate patient on: Condition For the Purpose of:: To decrease pain, To increase ROM, To improve muscle performance and motor function, To improve ability to perform ADL's, To increase tolerance to activity/condition/position, To improve ability of physical actions for home/community/work/leisure, To improve health of tissue, To decrease soft tissue restriction, To increase flexibility/ROM Therapeutic Exercise to Include: Strength training, Body mechanics, Postural training, Flexibilty training, Active ROM, Dynamic Lumbar Stabilization For the Purpose of:: To decrease pain, To increase ROM, To improve muscle performance and motor function, To improve ability to perform ADL's, To increase tolerance to activity/condition/position, To improve health of tissue, To decrease soft tissue restriction, To increase flexibility/ROM, To prevent re- injury TENS: Yes IF ES: Yes Cryotherapy (ice pack, ice massage): Yes Thermo therapy (hot pack): Yes For the Purpose of:: To decrease pain, To decrease swelling/inflammation, To improve health of tissue, To decrease soft tissue restriction This patient was last seen in our office . Pertinent comments regarding their Physical therapy will appear below: Patient was seen for PT intial Evaluation thus d/c At this point I will be discontinuing this patient from physical therapy. I would be happy to see this patient again in the future if found appropriate by the physician. Thank you! Michael Soriano, PT, Cert MDT, OCS Balance/Gait/Functional tests - Balance/Special Test Scores Oswestry Low Back Score: 32
== END 2021-11-23 19:00 | disposition home or self-care (01) ==
LOC: PT 10:52
PROVIDERS: Referring Provider Orthopaedic Surgery Orthopaedic Surgery of the Spine; Visit Provider Orthopaedic Surgery Orthopaedic Surgery of the Spine
DX: M51.16 Intervertebral disc disorders with radiculopathy, lumbar region (principal); Z98.890 Other specified postprocedural states
CPT/HCPCS: 97110; 97161

== ENCOUNTER → 2022-09-14 | Outpatient (CLI) | payer MEDICAID, SELFPAY ==
--- NOTE | 2022-09-14 13:28 | BI_ITS ---
MAMMOGRAPHY - BILATERAL SCREENING REASON FOR EXAM: Female, 52 years old. Routine annual screening examination. PERTINENT HISTORY: Non-contributory. TECHNIQUE: Digital bilateral breast harvey (3D mammographic acquisition) in the CC and MLO projections. 2-D mediolateral oblique (MLO) and craniocaudad (CC) views of both breasts were obtained. CAD: Full Field Digital Mammography with Computer Added Detection was performed. COMPARISON: Comparison is made with prior examination of 07/23/2020 and 07/10/2019. FINDINGS: Breast Composition: The breasts are heterogeneously dense, which may obscure small masses. There are no dominant masses or suspicious calcifications. No other significant abnormalities are identified. There has been no significant change since the prior study. BI/SCRN MAMM (CAD)W/HARVEY BILAT IMPRESSION: Stable bilateral screening mammogram. Yearly follow-up mammogram recommended. (A) ASSESSMENT CATEGORY: BIRADS Category 1: Negative. A letter regarding these results will be sent to the patient by the facility within 30 days. Approximately 10% of breast cancers are not detected by mammography. A normal mammogram should not delay biopsy of a clinically suspicious abnormality. [id number] Electronically Signed: Zia Dial MD at 14:48 EST ,
== END | disposition home or self-care (01) ==
LOC: OPBI 13:27
PROVIDERS: Visit Provider Student in an Organized Health Care Education/Training Program
DX: Z12.31 Encounter for screening mammogram for malignant neoplasm of breast (principal)
CPT/HCPCS: 77063; 77067

== ENCOUNTER → 2023-01-20 | Outpatient (CLI) | payer MEDICAID, SELFPAY ==
--- NOTE | 2023-01-20 09:11 | RAD_ITS ---
STUDY: X-RAY - PELVIS AND LEFT HIP REASON FOR EXAM: Female, 52 years old. Pain. TECHNIQUE: 3 views of the pelvis and hip. COMPARISON: None. FINDINGS: There is a non-specific bowel gas pattern. Normal visualized soft tissue structures. Normal bilateral iliac wings, sacroiliac joints and visualized sacrum. Normal bilateral superior and inferior pubic rami. Normal pubic symphysis. Normal bilateral ischial tuberosities. Normal visualized left femoral head. Normal L acetabulum. Normal left hip joint. RAD/HIP, UNI W/ Pelvis 2-3 Views IMPRESSION: Normal x-ray examination of the pelvis and left hip. Electronically Signed: Xavier Louis DO at 17:06 EDT ,
== END | disposition home or self-care (01) ==
LOC: MTRAD 09:09
PROVIDERS: Referring Provider Nurse Practitioner Acute Care; Visit Provider Nurse Practitioner Acute Care
DX: M25.552 Pain in left hip (principal)
CPT/HCPCS: 73502

== ENCOUNTER → 2023-02-22 | Outpatient (CLI) | payer MEDICAID, SELFPAY | END | disposition home or self-care (01) | LOC: LABSPEC 09:23 | PROVIDERS: Visit Provider Nurse Practitioner Women's Health | DX: N39.0 Urinary tract infection, site not specified (principal) | CPT/HCPCS: 87086; 87088; 87186 ==